=== PATIENT | female | born 1975 | race Caucasian/White ===

== ENCOUNTER 2017-01-30 17:36 | Inpatient (IN) | payer SELFPAY ==
[~2017-01-30] VITALS: Ht 157.5 cm; Wt 87.2 kg
--- NOTE | 2017-01-30 18:20 | ED NURSING NOTES ---
Clinical Report - Nurses [facility] [address] [place] [address] 01/30/2017 17:39 Patient: FRANCES MOURA TRIAGE Triage time 17:40. Acuity: LEVEL 3. Chief Complaint: INJURY TO RIGHT ANKLE. INJURY TO THE RIGHT ANKLE and LEFT ANKLE. Alert. --17:43 Palma Reza R.N. 17:40 01/30/17. BP: 163/89. HR: 90. RR: 18. O2 saturation: 100%. Pain level now 05/08. --17:43 Palma Reza R.N. Weight: 81.6 kg stated. Height/Length: 62 inches Per Patient. BMI: 32.9. --17:41 Palma Reza R.N. Medications None. --17:43 Palma Reza R.N. Allergies None. --17:43 Palma Reza R.N. History Arrived by private vehicle, and accompanied by family. This occurred just prior to arrival. ( Stepped off the curb wrong). She has had trouble walking. No numbness or tingling. 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 PAST MEDICAL HX: Tetanus status: up-to-date. SOCIAL HX: No alcohol use or drug use. --17:43 Palma Reza R.N. PROBLEMS: Paresthesia. Myofascial Strain. Juvenile Asthma. Headache. Hypertension. --17:43 Palma Reza R.N. ADDITIONAL SURGERIES: Csection. Hysterectomy. Tonsillectomy & Adenoidectomy. --17:43 Palma Reza R.N. PHYSICAL ASSESSMENT (kwabena). GENERAL / NEURO / PSYCH: Oriented X 4. Alert. Appears in pain and anxious. EXTREMITIES: Limited ROM present. Capillary refill is less than 2 seconds in the extremities. SKIN: Skin is pale. Skin is warm but moist. --17:44 Palma Reza R.N. NURSING PROGRESS NOTES Patient gowned. Patient identifiers checked. Call light placed in reach. Patient ready for evaluation- PA notified. --17:44 Palma Reza R.N. 17:45 01/30/2017 Site #1 started via IV in the left antecubital space with an 20g angiocath, with aseptic technique and good blood return; one attempt. Blood drawn: rainbow set. Labeled in the presence of the patient and sent to the lab. --17:45 Palma Reza R.N. 17:46 01/30/2017 Dilaudid (HYDROmorphone HCl PF) IVP 1 mg given over 2 minute(s) via site #1. Allergies verified, confirmed 5 rights and sedative warning given to the patient. IV patency established. IV site checked: no pain, redness, or swelling. IV flushed thoroughly pre- and post-medication administration. IVP given by RN. --17:46 Palma Reza R.N. 18:25 01/30/2017 Dilaudid (HYDROmorphone HCl PF) IVP 1 mg given over 2 minute(s) via site #1. --18:25 Palma Reza R.N. Assisted patient to bedside commode; tolerated well (PT voided 150 CCs. 2 person assist.). --18:54 Rufino Gonsalez, CHIDI [facility] 19:03 01/30/2017 Zofran (Ondansetron HCl) IVP 4 mg given over 2 minute(s) via site #1. Allergies verified and confirmed 5 rights. IV patency established. IV site checked: no pain, redness, or swelling. IV flushed thoroughly pre- and post-medication administration. IVP given by RN. --19:03 Palma Reza R.N. 19:19 01/30/2017 Dilaudid (HYDROmorphone HCl PF) IVP 1 mg given. via site #1. Allergies verified, confirmed 5 rights and sedative warning given to the patient and patient's family. IV patency established. IV site checked: no pain, redness, or swelling. IV flushed thoroughly pre- and post-medication administration. IVP given by RN. --19:19 Johnny Escoto R.N. 21:15 01/30/2017 Dilaudid (HYDROmorphone HCl PF) IVP 1 mg given over 2 minute(s) via site #1. Allergies verified, confirmed 5 rights and sedative warning given. IV patency established. IV site checked: no pain, redness, or swelling. IV flushed thoroughly pre- and post-medication administration. IVP given by RN. --23:30 Nick Rose R.N. 21:20 01/30/2017 Site #[address] upon admission; patent, no pain and no signs of infection or infiltration. Good blood return present. Flushed with 10 mL saline; flushes easily. --23:32 Nick Rose R.N. 19:00 01/30/17. BP: 147/76. HR: 88. RR: 16. O2 saturation: 100%. --23:40 Nick Rose R.N. 19:05. ( Splint applied to (L) Ankle by Anuel West). --23:42 Nick Rose R.N. Intake & Output Emesis output: 150; return noted with undigested food. --20:09 Johnny Escoto R.N. DISPOSITION / DISCHARGE Departure time: 2119. --21:22 Nick Rose R.N. 21:20. Admitted to Acute Care. Transported via stretcher by nurse with IV. Report was given to a nurse in person. Report included patient's care, treatment, medications, reviewed medication reconcilliation, and condition (including any recent changes or anticipated changes). All questions were answered. Report was acknowledged. Patient's personal items; items were placed in belongings bag. --21:23 Nick Rose R.N. 21:10 01/30/17. BP: 132/74. HR: 86. RR: 18. O2 saturation: 99% on room air. Temp: 98.6 F. Pain level now: 02/06. --23:39 Nick Rose R.N. Locked/Released at 01/30/2017 23:43 by Nick Rose R.N.
--- NOTE | 2017-01-30 18:20 | ED ORDER SUMMARY ---
..... Patient: FRANCES MOURA OrderSheet [facility] VisitID: [id number] [place] [address] 41y, F Registration Date/Time: 01/30/2017 ORDER SHEET Weight: 81.6 kg (stated) Allergies: None GENERAL ORDERS: Ankle 3 or 4V Right Urgent (17:43 01/30/2017 EKoroleva P.A.-C) (Ack 17:44 KHoerner) (17:46 DMaziarka R.N.) NPO (17:44 01/30/2017 EKoroleva P.A.-C) (Ack 17:44 KHoerner) (17:44 DMaziarka R.N.) CBC w Diff Urgent (18:00 01/30/2017 EKoroleva P.A.-C) (Ack 18:04 KHoerner) (18:17 DMaziarka R.N.) BMP Urgent (18:00 01/30/2017 EKoroleva P.A.-C) (Ack 18:04 KHoerner) (18:17 DMaziarka R.N.) Vitals (Pulse, BP, Resp Rate, Temp) (19:09 01/30/2017 EKoroleva P.A.-C) (Ack 19:09 KHoerner) (23:29 JRomanelli R.N.) MEDICATION ORDERS: IV FLUIDS: Dilaudid IV 1 mg (HIGH ALERT MEDICATION, NOW) (17:43 01/30/2017 EKoroleva P.A.-C) (17:46 DMaziarka R.N.) IV Saline Lock (17:43 01/30/2017 EKoroleva P.A.-C) (17:45 DMaziarka R.N.) Dilaudid IV 1 mg (HIGH ALERT MEDICATION, NOW) (18:06 01/30/2017 EKoroleva P.A.-C) (18:25 DMaziarka R.N.) Zofran IV 4 mg (NOW) (19:00 01/30/2017 EKoroleva P.A.-C) (19:03 DMaziarka R.N.) Dilaudid IV 1 mg (HIGH ALERT MEDICATION, NOW) (19:12 01/30/2017 Andrew Gardiner) (19:19 Roberto Carlos Reed) Dilaudid IV 1 mg (HIGH ALERT MEDICATION, NOW) (23:28 01/30/2017 Avis Reed verbal order read back to Andrew Gardiner) (23:30 Avis Reed) ORDER SHEET NOTES: [Electronically signed by Yomaira Jennings P.A.-C (19:21 01/30/2017)] [Electronically signed by Nick Rose R.N. (23:43 01/30/2017)] [Electronically locked/signed by Nick Rose R.N. (23:43 01/30/2017)]
--- NOTE | 2017-01-30 18:20 | ED CLINICAL REPORT ---
Clinical Report - Physicians/Mid Levels [facility] [address] [place] [place] [address] 01/30/2017 17:39 [id number] Time Seen: 17:48 Jan 30 2017. Arrived- By private vehicle. Historian- patient and family. HISTORY OF PRESENT ILLNESS Chief Complaint: Injury to the right ankle. The injury happened just prior to arrival. The patient sustained a twisting injury and direct blow. Occurred at home. Patient is experiencing severe pain. Patient denies injury to the head. (patient stepped from her porch to her left foot, which gave out, and she has a history of recurrent pains in issues with her left ankle, and then she slept on her right ankle and felt to distinct snap pop, and watch her ankle dangle. Has not been able to take any steps . No meds/ ice prior to arrival.). REVIEW OF SYSTEMS The patient complains of pain on weight bearing. She has had swelling. All systems otherwise negative, except as recorded above. PAST HISTORY The patient has not had a prior injury to the same area. Tetanus immunization status is up-to-date. Problems: Paresthesia. Myofascial Strain. Juvenile Asthma. Headache. Hypertension. Additional Surgeries: Csection. Hysterectomy. Tonsillectomy & Adenoidectomy. Medications: None. Allergies: None. SOCIAL HISTORY Never smoker. No alcohol use or drug use. ADDITIONAL NOTES The nursing notes have been reviewed. PHYSICAL EXAM Vital Signs: 01/30/2017 17:40 BP: 163/89. HR: 90. RR: 18. O2 saturation: 100%. Appearance: Alert. No acute distress. Head: Head atraumatic. ENT: Nose normal. CVS: Normal heart rate and rhythm. Heart sounds normal. Respiratory: No respiratory distress. Breath sounds normal. Skin: Skin intact. Skin warm. Extremities: Right posterior ankle: tenderness and swelling. Neurovascular intact distally. No puncture wound or foreign body. Not localized to the Achilles tendon. Negative squeeze test. Right lateral ankle: moderate tenderness and swelling. Right medial ankle: tenderness and swelling. No ecchymosis or foreign body. Base of the right 5th metatarsal. No tenderness or swelling. Left foot. (full rom, good pulse.) No tenderness, swelling, puncture wound or deformity. Right heel. No tenderness or swelling. No foot injury. Neuro, Vascular and Tendons: Vascular status intact. Motor intact. Gait: The patient was unable to bear weight. Neuro: Oriented X 3. LABS, X-RAYS, AND EKG Rt Ankle X-ray: (IMPRESSION: 1. Moderately displaced bimalleolar, potentially trimalleolar fracture (questionable nondisplaced posterior malleolus fracture). 2. Mild medial ankle mortise widening. Electronically Final signed by:Nicolette Resendiz MD 01/30/2017 6:27:50 PM). Laboratory Tests: CBC w Diff: (REENA: 01/30/2017 17:45) ( MsgRcvd 01/30/2017 18:11) Final results Test Result Flag Units (Reference) WHITE BLOOD COUNT 10.0 K/uL (4.5-11.5) RED BLOOD COUNT 5.13 M/uL (4.00-5.20) HEMOGLOBIN 14.8 gm/dL (12.0-16.0) HEMATOCRIT 44.5 % (36.0-46.0) MEAN CELL VOLUME 87 fL (80-100) MEAN CORPUSCULAR HGB 29 pg (26-34) MEAN CORPUSCULAR HGB CONC 33 g/dL (31-37) RED CELL DISTRIBUTION WIDTH 12.6 % (11.6-14.8) PLATELET COUNT 330 K/uL (150-400) NEUTROPHIL % 70.4 % (50-75) LYMPH % 20.3 L % (25-40) MONO % 7.6 % (3-14) EOSINOPHIL % 1.4 % (0-4) BASOPHIL % 0.3 % (0-2) BMP: (REENA: 01/30/2017 17:45) ( MsgRcvd 01/30/2017 18:13) Final results Test Result Flag Units (Reference) GLUCOSE 88 mg/dL (70-110) BUN 11 mg/dL (7-18) CREATININE 0.8 mg/dL (0.6-1.3) Estimated GFR >60 mL/min Estimated GFR- >60 mL/min Note: Persistent reduction over 3 months in eGFR<60 mL/min/1.73 m2 defines CKD. Patients with eGFR values>=60 mL/min/1.73 m2 may also have CKD if evidence ofpersistent proteinuria. Additional information may be foundat www.kidney.org. SODIUM 141 mmol/L (136-145) POTASSIUM 3.6 mmol/L (3.5-5.1) CHLORIDE 104 mmol/L (98-107) CARBON DIOXIDE 28 mmol/L (21-32) CALCIUM 9.0 mg/dL (8.5-10.1) . PROGRESS AND PROCEDURES PROCEDURES (Posterior R. Short leg, ns intact post tech application). Course of Care: Patient here with what likely appears as a trimalleolar fracture, with good distal pulse and sensation, with closed fracture in nature. No Achilles injury. Her left ankle appears unremarkable. No injury to the head neck. No injury to the hands. Discussed case with DR. Crespo, who will evaluate pt in er, admit to his services for surgery on 01/31/2017. Patient is stable. Symptoms better. Patient/family counseled. Disposition: Discharged. CLINICAL IMPRESSION Right trimalleolar fracture. INSTRUCTIONS Apply ice. (Electronically signed by Yomaira Jennings P.A.-C 01/30/2017 19:21)
--- NOTE | 2017-01-30 18:20 | ED NURSING NOTES ---
Clinical Report - Nurses Located Within [facility] [address] [place] [address] 01/30/2017 17:39 Patient: FRANCES MOURA TRIAGE Triage time 17:40. Acuity: LEVEL 3. Chief Complaint: INJURY TO RIGHT ANKLE. INJURY TO THE RIGHT ANKLE and LEFT ANKLE. Alert. --17:43 Palma Reza R.N. 17:40 01/30/17. BP: 163/89. HR: 90. RR: 18. O2 saturation: 100%. Pain level now 05/08. --17:43 Palma Reza R.N. Weight: 81.6 kg stated. Height/Length: 62 inches Per Patient. BMI: 32.9. --17:41 Palma Reza R.N. Medications None. --17:43 Palma Reza R.N. Allergies None. --17:43 Palma Reza R.N. History Arrived by private vehicle, and accompanied by family. This occurred just prior to arrival. ( Stepped off the curb wrong). She has had trouble walking. No numbness or tingling. 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 PAST MEDICAL HX: Tetanus status: up-to-date. SOCIAL HX: No alcohol use or drug use. --17:43 Palma Reza R.N. PROBLEMS: Paresthesia. Myofascial Strain. Juvenile Asthma. Headache. Hypertension. --17:43 Palma Reza R.N. ADDITIONAL SURGERIES: Csection. Hysterectomy. Tonsillectomy & Adenoidectomy. --17:43 Palma Reza R.N. PHYSICAL ASSESSMENT (kwabena). GENERAL / NEURO / PSYCH: Oriented X 4. Alert. Appears in pain and anxious. EXTREMITIES: Limited ROM present. Capillary refill is less than 2 seconds in the extremities. SKIN: Skin is pale. Skin is warm but moist. --17:44 Palma Reza R.N. NURSING PROGRESS NOTES Patient gowned. Patient identifiers checked. Call light placed in reach. Patient ready for evaluation- PA notified. --17:44 Palma Reza R.N. 17:45 01/30/2017 Site #1 started via IV in the left antecubital space with an 20g angiocath, with aseptic technique and good blood return; one attempt. Blood drawn: rainbow set. Labeled in the presence of the patient and sent to the lab. --17:45 Palma Reza R.N. 17:46 01/30/2017 Dilaudid (HYDROmorphone HCl PF) IVP 1 mg given over 2 minute(s) via site #1. Allergies verified, confirmed 5 rights and sedative warning given to the patient. IV patency established. IV site checked: no pain, redness, or swelling. IV flushed thoroughly pre- and post-medication administration. IVP given by RN. --17:46 Palma Reza R.N. 18:25 01/30/2017 Dilaudid (HYDROmorphone HCl PF) IVP 1 mg given over 2 minute(s) via site #1. --18:25 Palma Reza R.N. Assisted patient to bedside commode; tolerated well (PT voided 150 CCs. 2 person assist.). --18:54 Rufino Gonsalez, CHIDI [facility] 19:03 01/30/2017 Zofran (Ondansetron HCl) IVP 4 mg given over 2 minute(s) via site #1. Allergies verified and confirmed 5 rights. IV patency established. IV site checked: no pain, redness, or swelling. IV flushed thoroughly pre- and post-medication administration. IVP given by RN. --19:03 Palma Reza R.N. 19:19 01/30/2017 Dilaudid (HYDROmorphone HCl PF) IVP 1 mg given. via site #1. Allergies verified, confirmed 5 rights and sedative warning given to the patient and patient's family. IV patency established. IV site checked: no pain, redness, or swelling. IV flushed thoroughly pre- and post-medication administration. IVP given by RN. --19:19 Johnny Escoto R.N. 21:15 01/30/2017 Dilaudid (HYDROmorphone HCl PF) IVP 1 mg given over 2 minute(s) via site #1. Allergies verified, confirmed 5 rights and sedative warning given. IV patency established. IV site checked: no pain, redness, or swelling. IV flushed thoroughly pre- and post-medication administration. IVP given by RN. --23:30 Nick Rose R.N. 21:20 01/30/2017 Site #[address] upon admission; patent, no pain and no signs of infection or infiltration. Good blood return present. Flushed with 10 mL saline; flushes easily. --23:32 Nick Rose R.N. 19:00 01/30/17. BP: 147/76. HR: 88. RR: 16. O2 saturation: 100%. --23:40 Nick Rose R.N. 19:05. ( Splint applied to (L) Ankle by Anuel West). --23:42 Nick Rose R.N. Intake & Output Emesis output: 150; return noted with undigested food. --20:09 Johnny Escoto R.N. DISPOSITION / DISCHARGE Departure time: 2119. --21:22 Nick Rose R.N. 21:20. Admitted to Acute Care. Transported via stretcher by nurse with IV. Report was given to a nurse in person. Report included patient's care, treatment, medications, reviewed medication reconcilliation, and condition (including any recent changes or anticipated changes). All questions were answered. Report was acknowledged. Patient's personal items; items were placed in belongings bag. --21:23 Nick Rose R.N. 21:10 01/30/17. BP: 132/74. HR: 86. RR: 18. O2 saturation: 99% on room air. Temp: 98.6 F. Pain level now: 02/06. --23:39 Nick Rose R.N. Locked/Released at 01/30/2017 23:43 by Nick Rose R.N.
--- NOTE | 2017-01-30 18:20 | ED ORDER SUMMARY ---
..... Patient: FRANCES MOURA OrderSheet [facility] VisitID: [id number] [place] [address] 41y, F Registration Date/Time: 01/30/2017 ORDER SHEET Weight: 81.6 kg (stated) Allergies: None GENERAL ORDERS: Ankle 3 or 4V Right Urgent (17:43 01/30/2017 EKoroleva P.A.-C) (Ack 17:44 KHoerner) (17:46 DMaziarka R.N.) NPO (17:44 01/30/2017 EKoroleva P.A.-C) (Ack 17:44 KHoerner) (17:44 DMaziarka R.N.) CBC w Diff Urgent (18:00 01/30/2017 EKoroleva P.A.-C) (Ack 18:04 KHoerner) (18:17 DMaziarka R.N.) BMP Urgent (18:00 01/30/2017 EKoroleva P.A.-C) (Ack 18:04 KHoerner) (18:17 DMaziarka R.N.) Vitals (Pulse, BP, Resp Rate, Temp) (19:09 01/30/2017 EKoroleva P.A.-C) (Ack 19:09 KHoerner) (23:29 JRomanelli R.N.) MEDICATION ORDERS: IV FLUIDS: Dilaudid IV 1 mg (HIGH ALERT MEDICATION, NOW) (17:43 01/30/2017 EKoroleva P.A.-C) (17:46 DMaziarka R.N.) IV Saline Lock (17:43 01/30/2017 EKoroleva P.A.-C) (17:45 DMaziarka R.N.) Dilaudid IV 1 mg (HIGH ALERT MEDICATION, NOW) (18:06 01/30/2017 EKoroleva P.A.-C) (18:25 DMaziarka R.N.) Zofran IV 4 mg (NOW) (19:00 01/30/2017 EKoroleva P.A.-C) (19:03 DMaziarka R.N.) Dilaudid IV 1 mg (HIGH ALERT MEDICATION, NOW) (19:12 01/30/2017 Andrew Gardiner) (19:19 Roberto Carlos Reed) Dilaudid IV 1 mg (HIGH ALERT MEDICATION, NOW) (23:28 01/30/2017 Avis Reed verbal order read back to Andrew Gardiner) (23:30 Avis Reed) ORDER SHEET NOTES: [Electronically signed by Yomaira Jennings P.A.-C (19:21 01/30/2017)] [Electronically signed by Nick Rose R.N. (23:43 01/30/2017)] [Electronically locked/signed by Nick Rose R.N. (23:43 01/30/2017)]
--- NOTE | 2017-01-30 18:28 | DIAGNOSTIC IMAGING REPORT ---
PROCEDURE: XR ANKLE 3 OR 4 VIEWS - RIGHT INDICATION: TRAUMA/INJURY TECHNIQUE: Four views of the right ankle. COMPARISON: None. FINDINGS: Normal mineralization. Moderately displaced oblique coronal distal fibular diaphyseal fracture. Questionable nondisplaced, coronal oriented posterior malleolar fracture, mildly displaced medial malleolar fracture. Mild widening of the ankle mortise medially. The talar dome appears intact. Moderate size plantar calcaneal spur. Intact Achilles tendon. Diffuse periarticular soft tissue swelling and moderate tibiotalar joint effusion. IMPRESSION: 1. Moderately displaced bimalleolar, potentially trimalleolar fracture (questionable nondisplaced posterior malleolus fracture). 2. Mild medial ankle mortise widening.
--- NOTE | 2017-01-30 18:47 | Progress Note ---
Subjective General Patient admitted for fracture right ankle. Will need ORIF scheduled for surgery tomorrow. CT pending.
--- NOTE | 2017-01-30 18:47 | Progress Note ---
Subjective General Patient admitted for fracture right ankle. Will need ORIF scheduled for surgery tomorrow. CT pending.
--- NOTE | 2017-01-30 20:40 | DIAGNOSTIC IMAGING REPORT ---
PROCEDURE: CT LOWER EXT W/O CONT-RIGHT INDICATION: Fall, evaluate ankle fracture TECHNIQUE: Axial thin-slice CT images were obtained through the right ankle. Coronal and sagittal reformations were created. COMPARISON: Plain films performed the same day FINDINGS: There is a comminuted, moderately displaced, coronal eight oriented fracture of the posterior malleolus with extension and comminution at the articular surface. There is a transverse, moderately displaced fracture of the medial malleolus with mild comminution posteriorly. There is anterior subluxation of the distal tibia on the talus with abnormal anterior joint space widening. Subtle medial subluxation of the tibia on the talus is seen, minimally widening the ankle mortise, best seen on coronal series 200, image 40. Moderately displaced, minimally comminuted, oblique coronal oriented distal fibular fracture at the level of the syndesmosis. Tiny chip fracture off the dorsal anterior process of the talus. Tiny subcortical cystic change along the medial aspect of the talar dome, less likely to be post-traumatic. The hindfoot is otherwise intact with normal alignment. Mild diffuse subcutaneous edema. No radiodense foreign bodies. No obvious soft tissue abnormality. IMPRESSION: 1. Moderately displaced trimalleolar fracture. 2. Anteromedial subluxation of the distal tibia on the talus with abnormal anterior and medial joint space widening. 3. Chip fracture of the anterior process of the talus. 4. Medial talar dome subcortical cystic change, likely chronic.
[2017-01-30 21:49] VITALS: BP 140/103
[2017-01-30 23:42] VITALS: BP 133/72
--- NOTE | 2017-01-30 23:43 | ED MED RECONCILIATION SUMMARY ---
Patient: FRANCES MOURA Medication Reconciliation Report [facility] VisitID: [id number] [address] [place] [address] 41y, F Registration Date/Time: 01/30/2017 Weight: 81.6 kg Height/Length: 62 in. BMI: 32.9 ALLERGIES: None The patient's Home Medications are listed below: NONE. The source(s) of the original Home Medication information: Not obtained. The following Medications were given to the patient in the Emergency Department: Dilaudid [IVP] IVP 1 mg, administered: 01/30/2017 5:46:00 PM Dilaudid [IVP] IVP 1 mg, administered: 01/30/2017 6:25:00 PM Zofran [IVP] IVP 4 mg, administered: 01/30/2017 7:03:00 PM Dilaudid [IVP] IVP 1 mg, administered: 01/30/2017 7:19:00 PM Dilaudid [IVP] IVP 1 mg, administered: 01/30/2017 9:15:00 PM The following Medications were prescribed to the patient: None.
--- NOTE | 2017-01-30 23:43 | ED DISCHARGE INSTRUCTIONS ---
Patient: FRANCES MOURA General Instructions [facility] VisitID: [id number] [place] [address] 41y, F Registration Date/Time: 01/30/2017 Right trimalleolar fracture. INSTRUCTIONS Apply ice. ADDITIONAL INFORMATION Fracture:Ankle You have a break (fracture) of the ankle. This causes local pain, swelling and sometimes bruising. A fracture is treated with a splint or cast or special boot. It will take about 4-6 weeks for the fracture to heal. Surgery may be needed to fix severe injuries. Home Care: You will be given a splint, cast or boot to prevent movement at the ankle joint. Unless you were told otherwise, use crutches or a walker and do not bear weight on the injured leg until cleared by your doctor to do so. (Crutches and walkers can be rented at many pharmacies and surgical/orthopedic supply stores). Do not put weight on a splint; it will break. Keep your leg elevated to reduce pain and swelling. When sleeping, place a pillow under the injured leg. When sitting, support the injured leg so it is level with your waist. This is very important during the first 48 hours. Apply an ice pack (ice cubes in a plastic bag, wrapped in a towel) over the injured area for 20 minutes every 1-2 hours the first day. You can place the ice pack directly over the splint/cast. Continue with ice packs 3-4 times a day for the next two days, then as needed for the relief of pain and swelling. Keep the cast/splint/boot completely dry at all times. Bathe with your cast/splint/boot out of the water, protected with a large plastic bag, rubber-banded at the top end. If a boot or fiberglass cast/splint gets wet, you can dry it with a hair-dryer. You may use acetaminophen (Tylenol) or ibuprofen (Motrin, Advil) to control pain, unless another pain medicine was prescribed. [ NOTE : If you have chronic liver or kidney disease or ever had a stomach ulcer or GI bleeding, talk with your doctor before using these medicines.] Follow Up with your doctor in one week, or as advised by our staff, to be sure the bone is healing properly. If you were given a splint, it may be changed to a cast at your follow-up visit. [NOTE: A radiologist will review any X-rays that were taken. We will notify you of any new findings that may affect your care.] Get Prompt Medical Attention If Any Of The Following Occur: The plaster cast or splint becomes wet or soft The fiberglass cast or splint remains wet for more than 24 hours Increased tightness or pain under the cast or splint Toes become swollen, cold, blue, numb or tingly You have been given the following additional information: Fracture, Ankle (General) (Electronically signed by Yomaira Jennings P.A.-C 01/30/2017 19:21)
--- NOTE | 2017-01-30 23:43 | ED MAR SUMMARY ---
..... Medication Administration Record [facility] [address] [place] [address] Patient: FRANCES MOURA Visit ID: [id number] 41y, F Weight: 81.6 kg Height/Length: 62 in BMI: 32.9 ALLERGIES: None Given 17:46 01/30/2017 Palma Reza REugeniaNEugenia Medication Administered: DILAUDID [IVP] (HYDROMORPHONE HCL PF), Dose: 1 mg IVP over 2 minute(s), Site: #1 left AC. Medication Ordered: Dilaudid IV 1 mg (HIGH ALERT MEDICATION, NOW). Given 18:25 01/30/2017 Palma Reza R.N. Medication Administered: DILAUDID [IVP] (HYDROMORPHONE HCL PF), Dose: 1 mg IVP over 2 minute(s), Site: #1 left AC. Medication Ordered: Dilaudid IV 1 mg (HIGH ALERT MEDICATION, NOW). Given 19:03 01/30/2017 Palma Reza R.N. Medication Administered: ZOFRAN [IVP] (ONDANSETRON HCL), Dose: 4 mg IVP over 2 minute(s), Site: #1 left AC. Medication Ordered: Zofran IV 4 mg (NOW). Given 19:19 01/30/2017 Jhonny Escoto REugeniaNEugenia Medication Administered: DILAUDID [IVP] (HYDROMORPHONE HCL PF), Dose: 1 mg IVP, Site: #1 left AC. Medication Ordered: Dilaudid IV 1 mg (HIGH ALERT MEDICATION, NOW). Given 21:15 01/30/2017 Nick Rose REugeniaNEugenia Medication Administered: DILAUDID [IVP] (HYDROMORPHONE HCL PF), Dose: 1 mg IVP over 2 minute(s), Site: #1 left AC. Medication Ordered: Dilaudid IV 1 mg (HIGH ALERT MEDICATION, NOW).
--- NOTE | 2017-01-30 23:43 | ED MED RECONCILIATION SUMMARY ---
Patient: FRANCES MOURA Medication Reconciliation Report [facility] VisitID: [id number] [address] [place] [address] 41y, F Registration Date/Time: 01/30/2017 Weight: 81.6 kg Height/Length: 62 in. BMI: 32.9 ALLERGIES: None The patient's Home Medications are listed below: NONE. The source(s) of the original Home Medication information: Not obtained. The following Medications were given to the patient in the Emergency Department: Dilaudid [IVP] IVP 1 mg, administered: 01/30/2017 5:46:00 PM Dilaudid [IVP] IVP 1 mg, administered: 01/30/2017 6:25:00 PM Zofran [IVP] IVP 4 mg, administered: 01/30/2017 7:03:00 PM Dilaudid [IVP] IVP 1 mg, administered: 01/30/2017 7:19:00 PM Dilaudid [IVP] IVP 1 mg, administered: 01/30/2017 9:15:00 PM The following Medications were prescribed to the patient: None.
--- NOTE | 2017-01-30 23:43 | ED MAR SUMMARY ---
..... Medication Administration Record [facility] [address] [place] [address] Patient: FRANCES MOURA Visit ID: [id number] 41y, F Weight: 81.6 kg Height/Length: 62 in BMI: 32.9 ALLERGIES: None Given 17:46 01/30/2017 Palma Reza REugeniaNEugenia Medication Administered: DILAUDID [IVP] (HYDROMORPHONE HCL PF), Dose: 1 mg IVP over 2 minute(s), Site: #1 left AC. Medication Ordered: Dilaudid IV 1 mg (HIGH ALERT MEDICATION, NOW). Given 18:25 01/30/2017 Palma Reza R.N. Medication Administered: DILAUDID [IVP] (HYDROMORPHONE HCL PF), Dose: 1 mg IVP over 2 minute(s), Site: #1 left AC. Medication Ordered: Dilaudid IV 1 mg (HIGH ALERT MEDICATION, NOW). Given 19:03 01/30/2017 Palma Reza R.N. Medication Administered: ZOFRAN [IVP] (ONDANSETRON HCL), Dose: 4 mg IVP over 2 minute(s), Site: #1 left AC. Medication Ordered: Zofran IV 4 mg (NOW). Given 19:19 01/30/2017 Johnny Escoto REugeniaNEugenia Medication Administered: DILAUDID [IVP] (HYDROMORPHONE HCL PF), Dose: 1 mg IVP, Site: #1 left AC. Medication Ordered: Dilaudid IV 1 mg (HIGH ALERT MEDICATION, NOW). Given 21:15 01/30/2017 Nick Rose REugeniaNEugenia Medication Administered: DILAUDID [IVP] (HYDROMORPHONE HCL PF), Dose: 1 mg IVP over 2 minute(s), Site: #1 left AC. Medication Ordered: Dilaudid IV 1 mg (HIGH ALERT MEDICATION, NOW).
[2017-01-31] VITALS (10 sets, daily range): BP systolic 115–149; BP diastolic 76–93
--- NOTE | 2017-01-31 02:59 | HISTORY AND PHYSICAL ---
ADMITTED: 01/30/2017 CHIEF COMPLAINT: 1. Right ankle pain. HISTORY OF PRESENT ILLNESS: The patient was in her usual state of good health when she just tripped and twisted her right ankle, suffered a trimalleolar fracture of the same and is admitted for care and for surgical treatment of it. MEDICAL/SURGICAL HISTORY: The past history is positive in that she has had cervical cancer and had resection of her uterus when she was 29 years of age. She has had no evidence of recurrence since that time, but still she does have this past history of cancer. She also had a problem with palpitations and hypertension and was on a medication for a time associated with that, but says when she quit her job, which was very stressful, that is now improved and she is on no medications for her heart and has no more problems with hypertension. The patient denies hepatitis, AIDS, other types of cancer, tumor, tuberculosis, heart, lung, kidney, stomach disease. She has not had a previous myocardial infarction or cerebrovascular accident. MEDICATIONS: 1. She is no medications other than occasional ibuprofen for pain. ALLERGIES: 1. SHE HAS NO KNOWN ALLERGIES. SOCIAL HISTORY: The patient is a former smoker, but quit a number of years ago. FAMILY HISTORY: Positive for diabetes and heart disease, but no problems with bleeding or anesthesia complications. She does say her mother of liver cancer and had ITP before she , but it sounds like that was related to her liver cancer. REVIEW OF SYSTEMS: Negative for seizure disorder. She says she does have some problems with migraine and said at one time she did pass out with a migraine headache, but she has not had any visual, sensory or balance changes. She had no chest pains or shortness of breath. No cough or congestion, fever, chills. No recent palpitations and she has had no nausea, vomiting, or diarrhea. No dysuria, no other musculoskeletal complaints other than just some mild pain in her left foot. PHYSICAL EXAMINATION: HEENT: Shows her head to be normocephalic and atraumatic. Her eyes are clear. Hearing is grossly normal. There is no drainage from the ear canals. Mouth and posterior oropharynx are clear. The teeth are in good repair. The tongue is midline. Her face is symmetrical. NECK: Without jugular venous distention. CHEST: Symmetrical. HEART: Regular rate and rhythm. LUNGS: Clear to auscultation. ABDOMEN: Mildly obese, but there is no distention. BACK: The spine is without visible deformity. EXTREMITIES: The right lower extremity shows the patient to have 2 to 3+ edema at the right ankle, but there are no open skin wounds. There is no ecchymosis. Her dorsal pedal pulse is 2+. She has light touch sensation present in the toes throughout. LAB/IMAGING: Her x-rays show her to have a trimalleolar fracture with the posterior fragment being relatively large. It looks like on the lateral view, involves almost half the joint surface, although I think is somewhat an oblique fracture and probably is somewhat less than that, but nevertheless there is a significant posterior malleolar fragment as well. The patient does have some widening of the mortise as well. IMPRESSION: 1. Trimalleolar fracture, right ankle with displacement and intra-articular involvement. PLAN: The plan will be for repair of the same. I did explain to her this is a severe fracture as there are a number of pieces present. Her ankle joint is involved and the risk of her developing stiffness afterwards is nearly 100% and there is some risk of breakdown of the skin, of failure of repair, problems with healing, of infection , of continued pain, and deep venous thrombosis and blood clots in legs as well. She understands and accepts. We will certainly do the best we can, but this may be more than a one-step process in which do pinning or a stabilization procedure to start with and she may need to wait until the swelling subsides until we do further definitive stabilization, although I would hopefully be able to at least fix the medial malleolar fragment and get the mortise reduced, but we will do the best we can. I told that what is done tomorrow will be at least partially depended on the degree of swelling she has and we will plan to admit her and elevate and ice the ankle for tonight.
--- NOTE | 2017-01-31 07:47 | Progress Note ---
Subjective General Patient has a very comminuted tibial plafond fracture seen on CT. We will plan for surgical ORIF today, although she may just get an external fixator to reduce the tibiotalar joint and stabilize depending on the degree of edema she has when she comes to surgery and her compartment pressures. Labs were reviewed and are OK.
--- NOTE | 2017-01-31 20:20 | Postoperative Progress Note ---
Postop Progress Note Preoperate Diagnosis: Fracture right ankle Postoperative Diagnosis: Same + compartment syndrome right leg Surgeon: Michael Crespo MD Anesthesia: General ETT Findings: Elevated compartment pressures lateral, ant and deep post compartments right leg at the ankle. Comminuted and displaced frature right tibial plafond, medial malleolus, and distal fibula with subluxation of the tibiotalar joint. Patient had intact light touch sensation throughout the toes, Active DF/PF of toes and no undue pain with passive toe extension on PE just prior to surgery this pm, but elevated pressures on testing. Procedure: Open repair of medial malleolus. Application of external fixator RLE. Complications? No Condition: Stable EBL: <25cc Blood Administered: 0 Specimen(s) removed? No Grafts or Implants? Yes Graft/Implant type: Screw and pin, external fixator RLE. . (See nursing notes for details of grafts/implants)
--- NOTE | 2017-01-31 21:32 | OPERATIVE REPORT ---
DATE OF SURGERY: 01/31/2017 SURGEON: KANE TORRES MD PREOPERATIVE DIAGNOSES: 1. Fracture subluxation of the right ankle 2. Operation proposed was repair of right ankle fracture POSTOPERATIVE DIAGNOSIS: 1. Fracture subluxation of the right ankle with compartment syndrome PROCEDURE PERFORMED: 1. Open repair of the medial malleolar fracture 2. Debridement of the joint 3. Placement of external fixator CONDITION: She is in stable condition. ESTIMATED BLOOD LOSS: Less than 25 mL, probably closer to 10 mL. COMPLICATIONS: None. PATHOLOGY SPECIMEN: Sent to lab were none. SURGICAL TECHNIQUE: The patient was taken to the operating room, where she was given a general anesthetic, tourniquet applied to right thigh. The patient had a delay in the surgery when some of the instruments got dropped on the floor and needed to be resterilized. Once we got the appropriate instruments ready then the leg was prepped and draped in the usual sterile fashion. We started by measuring the compartment pressures. I was getting 57 in the anterior compartment, the same in the deep posterior compartment; 55, 56, 57, and 47 in the lateral compartment. I manipulated the ankle under fluoroscopic visualization. We were able to reduce the tibiotalar joint in a reasonable fashion and aligned the fibula. Unfortunately, I was not able to align the medial malleolus and get it lined with closed technique and we went on then to open the medial side of short curving incision directly over the medial malleolus, carrying down through subcutaneous tissue and then aligning the fracture there. First I opened it up, cleaned it out with a small curette, looked inside the joint, irrigated out the joint, removed a few small particles of bone and cartilage. I could see that she had a piece of cartilage that was marked off of the medial corner of the talar dome, just at its most medial aspect and again, there were a few other small fragments that were loose in the joint, which were removed. The patient had reduction in the medial malleolus. We pinned it with a 2 mm pin first and then made another drill hole just anterior to the pin site and through that placed a 50 mm length x 4 mm diameter malleolar screw and with that, we were able to secure the fracture down in excellent anatomic position and bent over the pin and then tapped it down flush with the end of the bone. With that we had good secure fixation of the medial malleolus and helped to stabilize the ankle and prevent posterior subluxation and lateral subluxation of the talus. I checked the compartment pressures again and got almost identical readings again this time and so rather than open her and risk having to leave her open with hardware in place on the lateral side. I placed an external fixator, 2 pins, directly anteriorly in the tibial shaft and I cross pinned through the calcaneus posteriorly and then a single 4 mm pin, the other pins were 5 mm pins, a single 4 mm pin in the proximal first metatarsal and made a triangular frame with this and was able to reduce the ankle and what looked like almost perfect alignment and once we clamped down the external fixator, had the joint actually reduced and the foot in a plantigrade position and the ankle aligned as it should be or at least as close to perfect alignment as is possible to obtain with the fluoroscopy, then we clamped everything down, dressed the pin sites with Xeroform, we went back and checked the compartment pressures and once she had the ankle reduced and everything in alignment, the pressures I was getting in the anterior and deep posterior compartments were 25-27 and in the lateral compartment 22, so rather marked improvement there and so we addressed the medial wound site, again dressed the pin sites with Xeroform, with gauze, wrapped it with Kerlix, very loosely applied, and then the Cyrus bandages very loosely applied over the top of that. She is being awakened. She will be taken to the recovery room. I did have a chance before the surgery to explain to patient and her that we might have to just put an external fixator, may not be able to go on really fix the fractures, particularly of the tibial plafond definitively tonight and they understood this. 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 We will be getting another CT of it to just check the articular surface of the tibial plafond and we will see where we go from there.
[2017-02-01] VITALS (7 sets, daily range): BP systolic 127–158; BP diastolic 83–108
--- NOTE | 2017-02-01 08:22 | Progress Note ---
Subjective General NMV intact. No drainage in the bandages. Mild distal edema. Pain better today. She is still c/o left ankle pain also. I looked at the left ankle with the fluoroscopy yesterday and saw no fracture, but will get a formal Xray to check. CT today of the right ankle to check for residual displacement at the articular surface of the tibail plafond. It looks perfect on Xray, but I want a CT to confirm.
--- NOTE | 2017-02-01 09:57 | DIAGNOSTIC IMAGING REPORT ---
PROCEDURE: XR ANKLE 3 OR 4 VIEWS - LEFT INDICATION: R/O fracture TECHNIQUE: Four views. COMPARISON: None. FINDINGS: Osseous structures and joint spaces are normal. IMPRESSION: 1. Normal left ankle.
--- NOTE | 2017-02-01 11:42 | DIAGNOSTIC IMAGING REPORT ---
PROCEDURE: CT LOWER EXT W/O CONT-RIGHT INDICATION: Status post ORIF with external fixation device. TECHNIQUE: Axial thin-slice CT images were obtained through the right ankle. Coronal and sagittal reformations were created. COMPARISON: 01/30/2017 FINDINGS: There has been reduction of the anterior subluxation of the distal tibia on the talus with near anatomic alignment of the posterior malleolar fracture fragments. There is a K-wire and a lag screw through the medial malleolus. There is a tiny cortical fracture fragment within the anteromedial aspect of the mortise arising from the medial calf malleolus, within the articular space. There has been decrease displacement of the coronal oblique distal fibular fracture, but persistent mild anterior displacement of the anterior fracture fragment. The ankle mortise alignment now appears near anatomic. The external fixation device courses through the first metatarsal, calcaneus, and proximal and mid tibia. No unexpected fractures or malalignment. IMPRESSION: 1. Near anatomic alignment of distal tibia and fibular fractures status post ORIF and external fixation. 2. Persistent mild displacement of distal fibular fracture. 3. Tiny anteromedial fragment from the medial malleolus encroaching on the anteromedial tibia talar joint. Clinical significance is uncertain.
--- NOTE | 2017-02-01 12:53 | DIAGNOSTIC IMAGING REPORT ---
PROCEDURE: XR FLUOROSCOPY OVER 1 HOUR INDICATION: Right ankle surgery. Intraoperative right ankle. TECHNIQUE: C-arm fluoroscopy provided Dr. Pascual Crespo for intraoperative surgical procedure. Fluoroscopy time 4 minutes 37 seconds (18.7 mGy). COMPARISON: Comparison is made to CT and radiographs of the right ankle on 01/30/2017. FINDINGS: AP and lateral intraoperative C-arm views were obtained. There has been open reduction internal fixation of medial malleolar fracture transfixed with a screw and metal and (anatomic position). Lateral malleolar and posterior malleolar fractures have been reduced to near anatomic position. There has been reduction of an impacted fracture of the tibial plafond with external metal hardware overlying the medial ankle, and a screw extending into the calcaneus (suggests internal/external fixating device). IMPRESSION: 1. Open reduction and internal fixation of medial malleolar fracture (anatomic position). 2. Reduction of lateral and posterior malleolar fractures disease (near anatomic position). 3. Reduction of tibial plafond fracture (near anatomic position) with placement of internal/external fixating device.
[2017-02-01] MEDS ORDERED: PERCOCET1 TA1 PO (17:28)
[2017-02-02 02:32] VITALS: BP 156/98
[2017-02-02 03:04] VITALS: BP 144/88
[2017-02-02 07:08] VITALS: BP 164/101
--- NOTE | 2017-02-02 07:47 | Progress Note ---
Subjective General Afeb BP elevated NMV intact. Only a small amount of drainage today. 2+ distal edema. Rebandaged DC home today with F/U in 1 week NWB.
[2017-02-02] MEDS ORDERED: DILAUDID4 MG PO (07:49)
--- NOTE | 2017-02-02 07:49 | Provider's Discharge Care Plan ---
Problem, Goal, Plan Problem List 1. Ankle fracture
--- NOTE | 2017-02-02 07:49 | Provider's Discharge Care Plan ---
Problem, Goal, Plan Problem List 1. Ankle fracture
--- NOTE | 2017-02-02 08:15 | DISCHARGE SUMMARY ---
ADMIT DATE: 01/30/2017 DISCHARGE DATE: 02/02/2017 DISCHARGE DIAGNOSES: 1. Left ankle sprain 2. Right ankle tibial plafond and distal fibular fracture BRIEF HISTORY: The patient was in her usual state of good health when she suffered a fall and fractured her right ankle and posterior left ankle. She was brought to the emergency room and x-rays confirmed the fractures. Orthopedic consultation was requested. HOSPITAL COURSE: The patient was admitted to the hospitalist. She was taken to surgery the next day where she had limited open repair and then external fixation of the right ankle fracture. She did have a compartment syndrome, with elevated compartment pressures when we started, and by the time she was stabilized and reduced, compartment pressures had subsided and she subsequently then had no problems with sensation or motor function distally during the course of her further stay in the hospital. She was able to dorsiflex and plantarflex the toes without difficulty, had light touch sensation present, intact distally, and the toes were warm and pink and circulation remained intact. At the time of her discharge, the patient was well stabilized and the tibial plafond fracture almost perfectly reduced with external fixation. The medial malleolus was stabilized with a pin and screw, and the distal fibular fracture was in adequate position, with some mild subluxation of the distal tib-fib joint and mild displacement of the fibular fracture, but still this was as good as was felt could be done with the external fixation at this time, and she probably will need later further internal fixation once the swelling subsides. She was stable. Vital signs, there was some elevation of her blood pressure, which was felt to be primarily secondary to pain. Her temperature was normal, and she was afebrile by the time of her discharge on 03/2017. Again, her sensation and motor functions and circulation remained intact distally. The drainage has already subsided. I did change her bandages, and she will be discharged to home then on 02/02/2017 in good condition. DISCHARGE INSTRUCTIONS/MEDICATIONS: The plan will be for her to refrain from any weightbearing at all, to keep the incisions clean and dry and covered, and the external likewise. She will take Dilaudid 4 mg every 3 hours as needed for pain and will return for followup in our office in 1 week. Condition on discharge is stable. The prognosis is fair, because of the extensive comminution and the nature of the fracture, and the discharged status is home.
[2017-02-02 10:53] VITALS: BP 164/97
[2017-03-21] MEDS ORDERED: VICODIN EQUIVAL1 TAB PO (16:12)
[2017-03-21] MEDS ORDERED: DOXYCYCLINE100 MG PO (16:13)
== END 2017-02-02 14:30 | disposition home or self-care (01) | DRG 493 ==
LOC: ED SRH 17:36 → TRANS SRH 18:26 → ACUTE2 SRH 20:20
PROVIDERS: Orthopaedic Surgery; ADMIT Emergency Medicine
PROC: 0QSG04Z Reposition Right Tibia with Internal Fixation Device, Open Approach (ICD-10-PCS; principal; 2017-01-31 14:00)
PROC: 0SBF0ZZ Excision of Right Ankle Joint, Open Approach (ICD-10-PCS; principal; 2017-01-31 14:00)
PROC: 0SSFXZZ Reposition Right Ankle Joint, External Approach (ICD-10-PCS; principal; 2017-01-31 14:00)
PROC: 0QHG35Z Insertion of External Fixation Device into Right Tibia, Percutaneous Approach (ICD-10-PCS; principal; 2017-01-31 14:00)
DX: S82.851A Displaced trimalleolar fracture of right lower leg, initial encounter for closed fracture (principal); T79.A21A Traumatic compartment syndrome of right lower extremity, initial encounter; S93.04XA Dislocation of right ankle joint, initial encounter; S93.402A Sprain of unspecified ligament of left ankle, initial encounter; W10.8XXA Fall (on) (from) other stairs and steps, initial encounter; Y92.018 Other place in single-family (private) house as the place of occurrence of the external cause; Y93.01 Activity, walking, marching and hiking; Y99.8 Other external cause status

== ENCOUNTER 2017-03-17 18:58 | Emergency (ER) | payer BC ==
[~2017-03-17 18:58] MED LIST: DILAUDID4 MG PO; PERCOCET1 TA1 PO
--- NOTE | 2017-03-17 20:50 | DIAGNOSTIC IMAGING REPORT ---
PROCEDURE: XR FOOT 3 VIEWS - RIGHT INDICATION: PAIN IN FOOT TECHNIQUE: Three views. COMPARISON: Right ankle x-ray 01/30/2017. FINDINGS: Pin and screw fixating the medial malleolar fracture. External fixation device through the calcaneus and first metatarsal. No evidence of hardware failure or evidence of infection. IMPRESSION: 1. Right foot postsurgical changes. No evidence of osteomyelitis.
--- NOTE | 2017-03-17 22:16 | ED CLINICAL REPORT ---
Clinical Report - Physicians/Mid Levels [facility] [address] [place] [address] 03/17/2017 18:58 Patient: FRANCES MOURA Time Seen: 19:28. Arrived- By private vehicle. Historian- patient and spouse. HISTORY OF PRESENT ILLNESS Chief Complaint: ( Severe right foot pain for several hours.). At its maximum, severity described as severe. Modifying factors- worsened by movement. Not relieved by anything. This started today and is still present and worsening. It was abrupt in onset. (Patient had a comminuted right ankle/lower leg fracture and was treated with external fixating rods on 01/31/2017. She seemed to be recovering as expected until about 2 weeks ago when she apparently developed a staph infection. She was treated with Augmentin and finished her course 5 days ago. Tonight she awoke up from sleep with severe throbbing pain in her right foot. No recent trauma. No fever or chills. She feels that the redness around one of the rods is new. She was seen earlier this week by her surgeon who felt that her pain was from nerve pain.). Similar symptoms previously: None. Recent medical care: The patient was seen recently at another facility in a clinic. REVIEW OF SYSTEMS No fever, cough, difficulty breathing, abdominal pain or nausea. No vomiting, chills or skin rash. PAST HISTORY See nurses notes. SOCIAL HISTORY Smoker- current status unknown. No alcohol use or drug use. ADDITIONAL NOTES The nursing notes have been reviewed. PHYSICAL EXAM Appearance: Alert. Appears to be in pain. Eyes: Eyes normal inspection. Neck: Normal inspection. CVS: Normal heart rate and rhythm. Heart sounds normal. Respiratory: No respiratory distress. Breath sounds normal. Back: Normal inspection. Skin: Skin warm and dry. No rash. Extremities: Right leg. No erythema, tenderness or swelling. Right foot: mild erythema and severe tenderness located in the heel. Neurovascular intact distally. (Pain out of proportion to even light touch throughout the calcaneus. Mild erythema around the lateral fixator john that this looks to be from chronic skin irritation. Otherwise no erythema, edema or warmth.). No swelling or deformity. Neuro: Oriented X 3. No motor deficit. No sensory deficit. LABS, X-RAYS, AND EKG Lt Foot X-ray: Soft tissues normal. Joint spaces normal. (No acute fracture. No hardware loosening.). The X-rays were discussed with the radiologist. Laboratory Tests: ESR: (REENA: 03/17/2017 19:30) ( [facility] 03/17/[place] 21:29) Final results Test Result Flag Units (Reference) SED RATE WESTERGREN 12 mm/hr (0-20) CBC w Diff: (REENA: 03/17/2017 19:30) ( [facility] [place] 03/17/[place] 19:44) Final results Test Result Flag Units (Reference) WHITE BLOOD COUNT 13.5 H K/uL (4.5-11.5) RED BLOOD COUNT 5.10 M/uL (4.00-5.20) HEMOGLOBIN 14.6 gm/dL (12.0-16.0) HEMATOCRIT 43.1 % (36.0-46.0) MEAN CELL VOLUME 85 fL (80-100) MEAN CORPUSCULAR HGB 29 pg (26-34) MEAN CORPUSCULAR HGB CONC 34 g/dL (31-37) RED CELL DISTRIBUTION WIDTH 12.9 % (11.6-14.8) PLATELET COUNT 347 K/uL (150-400) NEUTROPHIL % 65.4 % (50-75) LYMPH % 23.5 L % (25-40) MONO % 9.9 % (3-14) EOSINOPHIL % 0.9 % (0-4) BASOPHIL % 0.3 % (0-2) [id number]: (REENA: 03/17/2017 19:30) ( [facility] [place] 03/17/2017 21:17) Final results Test Result Flag Units (Reference) C-REACTIVE PROTEIN 2.8 H mg/dL (0.0-0.9) Lactate, Serum: (REENA: 03/17/2017 19:40) ( [facility] [place] 03/17/2017 20:15) Final results Test Result Flag Units (Reference) LACTIC ACID 1.2 mmol/L (0.4-2.0) CMP: (REENA: 03/17/2017 19:30) ( [facility] 03/17/2017 19:51) Final results Test Result Flag Units (Reference) GLUCOSE 106 mg/dL (70-110) BUN 13 mg/dL (7-18) CREATININE 0.8 mg/dL (0.6-1.3) Estimated GFR >60 mL/min Estimated GFR- >60 mL/min Note: Persistent reduction over 3 months in eGFR<60 mL/min/1.73 m2 defines CKD. Patients with eGFR values>=60 mL/min/1.73 m2 may also have CKD if evidence ofpersistent proteinuria. Additional information may be foundat www.kidney.org. SODIUM 140 mmol/L (136-145) POTASSIUM 4.0 mmol/L (3.5-5.1) CHLORIDE 103 mmol/L (98-107) CARBON DIOXIDE 25 mmol/L (21-32) CALCIUM 9.4 mg/dL (8.5-10.1) TOTAL PROTEIN 8.1 g/dL (6.4-8.2) ALBUMIN 4.0 g/dL (3.3-5.0) BILIRUBIN, TOTAL 0.3 mg/dL (0.0-1.0) ALKALINE PHOSPHATASE 65 U/L (46-116) AST (SGOT) 11 L U/L (15-37) ALT (SGPT) 29 U/L (12-78) . PROGRESS AND PROCEDURES Course of Care: 20:56 03/17/17. Discussed with radiology as well as supervising physician. No evidence of hardware loosening on x-ray. Lactate normal white count slightly elevated. We'll add an ESR and CRP and talk to on-call orthopedics. 21:33 03/17/17. CRP slightly elevated. Will discuss with on-call orthopedic surgeon. 21:50 03/17/17. Spoke to on-call surgeon. Discharge decision based on the following: patient's condition is stable; patient's condition is improved; patient's exam is stable; minimally abnormal test results; stable condition on multiple repeat evaluations; improving condition on multiple repeat evaluations; social support is good; transportation is available; follow-up is arranged; clinical impression is consistent with outpatient treatment. CLINICAL IMPRESSION Acute pain in the right lower extremity (foot). INSTRUCTIONS Rest at home for three days. Do not work for three days until better. No dietary restrictions. Warnings: SEDATIVE MEDICATION: You were given sedative medication during your visit. Do not drive or operate dangerous machinery. GENERAL WARNINGS: Return or contact your physician immediately if your condition worsens or changes unexpectedly, if not improving as expected, or if other problems arise. Specifically return if pain, vomiting or fever. Prescription Medications: Augmentin 875 mg: take 1 tablet orally every 12 hours for 10 days. No refill. Substitution is permissible. Pacific 5 mg / 325 mg tablets: take 1 to 2 orally every 6 hours as needed for pain. Dispense fifteen (15). No refill. Substitution is permissible. Elavil 25 mg: at bedtime. Dispense twenty (20). No refill. Substitution is permissible. (T 1 tab PO HS for 1 week, then increase to 2 tabs PO HS.) Follow-up: Follow up with your doctor as scheduled. Understanding of the discharge instructions verbalized by patient. Follow-up with: [facility], , [address] [place], [id number]; Luis Eduardo Madera M.D., [facility], , [address], , [place], [id number] Follow up even if well. Call for the next available appointment. (Electronically signed by Teddy Marin, 03/17/2017 23:04)
--- NOTE | 2017-03-17 22:16 | ED NURSING NOTES ---
Clinical Report - [facility] [address] [place] [address] 03/17/2017 18:58 Patient: FRANCES MOURA TRIAGE Triage time 19:08. --19:13 Ashley Lowe R.N. 19:08 03/17/17. BP: 150/90. HR: 100. RR: 22. O2 saturation: 97%. Temp: 98.5 F. Pain level now: 08/08. --19:13 Ashley Lowe R.N. Weight: 83.9 kg stated. Height/Length: 62 inches Per Patient. BMI: 33.9. --19:11 Ashley Lowe R.N. History Arrived by private vehicle. Historian: patient and family. ( RLE postsurgical pain with external fixation device. Pt. had ORIF on 01/31/2017, was Dx with "staph" infection in leg 2 weeks ago. Was on 10-day course of Augmentin, finished 4 days ago. Pt. awoke at 0230 with severe pain, has increased since that time.). She has had numbness. ( Pt reports numbness since surgery). SOCIAL HX: Smoker- current status unknown. No alcohol use or drug use. No infectious disease exposure. --19:13 Ashley Lowe R.N. PROBLEMS: Ankle Fracture. Hypertension. --19:10 Ashley Lowe R.N. ADDITIONAL SURGERIES: ORIF RLE . --19:10 Ashley Lowe R.N. NURSING PROGRESS NOTES 19:28 03/17/2017 Dilaudid (HYDROmorphone HCl PF) IVP 1 mg given over 2 minute(s) via site #1. --19:33 Ashley Lowe R.N. 19:03/17/2017 Zofran (Ondansetron HCl) IVP 4 mg given over 2 minute(s) via site #1. --19:33 Ashley Lowe R.N. 19:32 03/17/2017 Site #1 started via IV in the right antecubital space with an 20g angiocath. --19:33 Ashley Lowe R.N. Cold pack applied. Reassurance given. Call light placed in reach. Side rails up x 2. Bed placed in lowest position. --20:00 Ashley Lowe R.N. 20:00 03/17/17. BP: 135/89. HR: 91. RR: 16. O2 saturation: 98%. Pain level now: 03/08. --20:01 Ashley Lowe R.N. ( pt reports pain better after meds.). --20:01 Ashley Lowe R.N. 20:25 03/17/2017 Dilaudid (HYDROmorphone HCl PF) IVP 1 mg given over 2 minute(s) via site #1. Allergies verified, confirmed 5 rights and sedative warning given to the patient and patient's family. IV patency established. IV site checked: no pain, redness, or swelling. IV flushed thoroughly pre- and post-medication administration. IVP given by RN. --20:25 Ashley Lowe R.N. ( wound cultured and sent to lab.). --20:29 Ashley Lowe R.N. 21:13 03/17/2017 Dilaudid (HYDROmorphone HCl PF) IVP 1 mg given over 2 minute(s) via site #1. Allergies verified, confirmed 5 rights and sedative warning given to the patient and patient's family. IV patency established. IV site checked: no pain, redness, or swelling. IV flushed thoroughly pre- and post-medication administration. --21:13 Ashley Lowe R.N. 22:00 03/17/2017 Started 2 gm of Rocephin (CefTRIAXone Sodium) IVPB in bag #1 50 mL; at 100 mL/hr over 30 minute(s) via site #1 via IV pump. Allergies verified and confirmed 5 rights. IV patency established. IV site checked: no pain, redness, or swelling. IV flushed thoroughly pre- and post-medication administration. --22:00 Ashley Lowe R.N. ( pt resting quietly. States pain is "starting to creep back up." Abx hung. No further needs. Requesting ice chips. Will let provider know.). --22:05 Ashley Lowe R.N. 22:04 03/17/17. BP: 126/83. HR: 96. RR: 18. O2 saturation: 99%. Pain level now: 03/08. --22:05 Ashley Lowe R.N. ( Pt. given ice chips. Ok'd by provider.). --22:06 Ashley Lowe R.N. ( Report to RN. Leonie for end of shift coverage.). --22:11 Ashley Lowe R.N. 22:31 03/17/2017 Rocephin IVPB Discontinued: bag #1 completed. Total amount infused: 50 mL. IV patency established. IV site checked: no pain, redness, or swelling. IV flushed thoroughly. --22:31 Miguelina Serrano. DISPOSITION / DISCHARGE Departure time: 2230. Condition at departure: improved and stable. No learning barriers present. Discharge instructions provided and reviewed with the patient and spouse. Patient verbalized understanding. Written instructions provided in Cymraes. The patient was discharged by the physician. She was discharged home and accompanied by spouse. She left the Emergency Department in a wheelchair and via private vehicle. Spouse driving. ( Late entry). --19:15 Leonie Gutierrez. Locked/Released at 03/27/2017 19:15 by Leonie Gutierrez,
--- NOTE | 2017-03-17 22:16 | ED ORDER SUMMARY ---
..... Patient: FRANCES MOURA OrderSheet [facility] VisitID: [id number] [place] [address] 41y, F Registration Date/Time: 03/17/2017 ORDER SHEET Weight: 83.9 kg (stated) Allergies: GENERAL ORDERS: CBC w Diff Urgent (19:03/17/2017 JCoates) (Ack 19:26 OSnell) (22:31 HSoule) CMP Urgent (19:03/17/2017 JCoates) (Ack 19:26 OSnell) (22:31 HSoule) Lactate, Serum Urgent (:03/17/2017 JCoates) (Ack 19:26 OSnell) (22:31 HSoule) Foot 3V Left Urgent (19:03/17/2017 JCoates) (Ack 19:28 OSnell) (20:37 [place]) Culture, Wound Surface (Ankle) (Right ankle john insertion ) Urgent (20:25 03/17/2017 SStone R.N. verbal order read back to JCoates) (Ack 20:32 OSnell) (22:31 HSoule) CRP Urgent (20:56 03/17/2017 JCoates) (Ack 21:21 OSnell) (22:31 HSoule) ESR Urgent (20:56 03/17/2017 JCoates) (Ack 21:22 OSnell) (22:31 HSoule) Consult - Ortho (On-call for [facility] (Dr. Pollack previous surgeon). Thanks.) (21:32 03/17/2017 JCoates) (Ack 21:37 OSnell) (22:31 HSoule) MEDICATION ORDERS: IV FLUIDS: Dilaudid IV 2 mg (NOW) (19:03/17/2017 JCoates) (19:33 SStone R.N.) Zofran IV 8 mg (NOW) (:03/17/2017 JCoates) (19:33 SStone R.N.) IV Saline Lock (:03/17/2017 JCoates) (19:32 SStone R.N.) Dilaudid IV 1 mg (NOW) (21:09 03/17/2017 JCoates) (21:13 SStone R.N.) Rocephin IV 2 gm/50mL (NOW) (21:50 03/17/2017 JCoates) (22:00 SStone R.N.) ORDER SHEET NOTES: [Electronically signed by Teddy Marin (23:04 03/17/2017)] [Electronically signed by Leonie Gutierrez (19:15 03/27/2017)] [Electronically locked/signed by Leonie Gutierrez (19:15 03/27/2017)]
--- NOTE | 2017-03-17 22:16 | ED CLINICAL REPORT ---
Clinical Report - Physicians/Mid Levels [facility] [address] [place] [address] 03/17/2017 18:58 Patient: FRANCES MOURA Time Seen: 19:28. Arrived- By private vehicle. Historian- patient and spouse. HISTORY OF PRESENT ILLNESS Chief Complaint: ( Severe right foot pain for several hours.). At its maximum, severity described as severe. Modifying factors- worsened by movement. Not relieved by anything. This started today and is still present and worsening. It was abrupt in onset. (Patient had a comminuted right ankle/lower leg fracture and was treated with external fixating rods on 01/31/2017. She seemed to be recovering as expected until about 2 weeks ago when she apparently developed a staph infection. She was treated with Augmentin and finished her course 5 days ago. Tonight she awoke up from sleep with severe throbbing pain in her right foot. No recent trauma. No fever or chills. She feels that the redness around one of the rods is new. She was seen earlier this week by her surgeon who felt that her pain was from nerve pain.). Similar symptoms previously: None. Recent medical care: The patient was seen recently at another facility in a clinic. REVIEW OF SYSTEMS No fever, cough, difficulty breathing, abdominal pain or nausea. No vomiting, chills or skin rash. PAST HISTORY See nurses notes. SOCIAL HISTORY Smoker- current status unknown. No alcohol use or drug use. ADDITIONAL NOTES The nursing notes have been reviewed. PHYSICAL EXAM Appearance: Alert. Appears to be in pain. Eyes: Eyes normal inspection. Neck: Normal inspection. CVS: Normal heart rate and rhythm. Heart sounds normal. Respiratory: No respiratory distress. Breath sounds normal. Back: Normal inspection. Skin: Skin warm and dry. No rash. Extremities: Right leg. No erythema, tenderness or swelling. Right foot: mild erythema and severe tenderness located in the heel. Neurovascular intact distally. (Pain out of proportion to even light touch throughout the calcaneus. Mild erythema around the lateral fixator john that this looks to be from chronic skin irritation. Otherwise no erythema, edema or warmth.). No swelling or deformity. Neuro: Oriented X 3. No motor deficit. No sensory deficit. LABS, X-RAYS, AND EKG Lt Foot X-ray: Soft tissues normal. Joint spaces normal. (No acute fracture. No hardware loosening.). The X-rays were discussed with the radiologist. Laboratory Tests: ESR: (REENA: 03/17/2017 19:30) ( [facility] [place] 03/17/2017 21:29) Final results Test Result Flag Units (Reference) SED RATE WESTERGREN 12 mm/hr (0-20) CBC w Diff: (REENA: 03/17/2017 19:30) ( [facility] [place] 03/17/2017 19:44) Final results Test Result Flag Units (Reference) WHITE BLOOD COUNT 13.5 H K/uL (4.5-11.5) RED BLOOD COUNT 5.10 M/uL (4.00-5.20) HEMOGLOBIN 14.6 gm/dL (12.0-16.0) HEMATOCRIT 43.1 % (36.0-46.0) MEAN CELL VOLUME 85 fL (80-100) MEAN CORPUSCULAR HGB 29 pg (26-34) MEAN CORPUSCULAR HGB CONC 34 g/dL (31-37) RED CELL DISTRIBUTION WIDTH 12.9 % (11.6-14.8) PLATELET COUNT 347 K/uL (150-400) NEUTROPHIL % 65.4 % (50-75) LYMPH % 23.5 L % (25-40) MONO % 9.9 % (3-14) EOSINOPHIL % 0.9 % (0-4) BASOPHIL % 0.3 % (0-2) [id number]: (REENA: 03/17/2017 19:30) ( [facility] [place] 03/17/2017 21:17) Final results Test Result Flag Units (Reference) C-REACTIVE PROTEIN 2.8 H mg/dL (0.0-0.9) Lactate, Serum: (REENA: 03/17/2017 19:40) ( [facility] 03/17/2017 20:15) Final results Test Result Flag Units (Reference) LACTIC ACID 1.2 mmol/L (0.4-2.0) CMP: (REENA: 03/17/2017 19:30) ( [facility] 03/17/2017 19:51) Final results Test Result Flag Units (Reference) GLUCOSE 106 mg/dL (70-110) BUN 13 mg/dL (7-18) CREATININE 0.8 mg/dL (0.6-1.3) Estimated GFR >60 mL/min Estimated GFR- >60 mL/min Note: Persistent reduction over 3 months in eGFR<60 mL/min/1.73 m2 defines CKD. Patients with eGFR values>=60 mL/min/1.73 m2 may also have CKD if evidence ofpersistent proteinuria. Additional information may be foundat www.kidney.org. SODIUM 140 mmol/L (136-145) POTASSIUM 4.0 mmol/L (3.5-5.1) CHLORIDE 103 mmol/L (98-107) CARBON DIOXIDE 25 mmol/L (21-32) CALCIUM 9.4 mg/dL (8.5-10.1) TOTAL PROTEIN 8.1 g/dL (6.4-8.2) ALBUMIN 4.0 g/dL (3.3-5.0) BILIRUBIN, TOTAL 0.3 mg/dL (0.0-1.0) ALKALINE PHOSPHATASE 65 U/L (46-116) AST (SGOT) 11 L U/L (15-37) ALT (SGPT) 29 U/L (12-78) . PROGRESS AND PROCEDURES Course of Care: 20:56 03/17/17. Discussed with radiology as well as supervising physician. No evidence of hardware loosening on x-ray. Lactate normal white count slightly elevated. We'll add an ESR and CRP and talk to on-call orthopedics. 21:33 03/17/17. CRP slightly elevated. Will discuss with on-call orthopedic surgeon. 21:50 03/17/17. Spoke to on-call surgeon. Discharge decision based on the following: patient's condition is stable; patient's condition is improved; patient's exam is stable; minimally abnormal test results; stable condition on multiple repeat evaluations; improving condition on multiple repeat evaluations; social support is good; transportation is available; follow-up is arranged; clinical impression is consistent with outpatient treatment. CLINICAL IMPRESSION Acute pain in the right lower extremity (foot). INSTRUCTIONS Rest at home for three days. Do not work for three days until better. No dietary restrictions. Warnings: SEDATIVE MEDICATION: You were given sedative medication during your visit. Do not drive or operate dangerous machinery. GENERAL WARNINGS: Return or contact your physician immediately if your condition worsens or changes unexpectedly, if not improving as expected, or if other problems arise. Specifically return if pain, vomiting or fever. Prescription Medications: Augmentin 875 mg: take 1 tablet orally every 12 hours for 10 days. No refill. Substitution is permissible. Agency 5 mg / 325 mg tablets: take 1 to 2 orally every 6 hours as needed for pain. Dispense fifteen (15). No refill. Substitution is permissible. Elavil 25 mg: at bedtime. Dispense twenty (20). No refill. Substitution is permissible. (T 1 tab PO HS for 1 week, then increase to 2 tabs PO HS.) Follow-up: Follow up with your doctor as scheduled. Understanding of the discharge instructions verbalized by patient. Follow-up with: [facility], , [address] [place], [id number]; Luis Eduardo Madera M.D., [facility], , [address], , [place], [phone] Follow up even if well. Call for the next available appointment. (Electronically signed by Teddy Marin, 03/17/2017 23:04)
--- NOTE | 2017-03-17 22:16 | ED ORDER SUMMARY ---
..... Patient: FRANCES MOURA OrderSheet [facility] VisitID: [id number] [place] [place] [address] 41y, F Registration Date/Time: 03/17/2017 ORDER SHEET Weight: 83.9 kg (stated) Allergies: GENERAL ORDERS: CBC w Diff Urgent (19:03/17/2017 JCoates) (Ack 19:26 OSnell) (22:31 HSoule) CMP Urgent (19:03/17/2017 JCoates) (Ack 19:26 OSnell) (22:31 HSoule) Lactate, Serum Urgent (:03/17/2017 JCoates) (Ack 19:26 OSnell) (22:31 HSoule) Foot 3V Left Urgent (19:03/17/2017 JCoates) (Ack 19:28 OSnell) (20:37 [place]) Culture, Wound Surface (Ankle) (Right ankle john insertion ) Urgent (20:25 03/17/2017 SStone R.N. verbal order read back to JCoates) (Ack 20:32 OSnell) (22:31 HSoule) CRP Urgent (20:56 03/17/2017 JCoates) (Ack 21:21 OSnell) (22:31 HSoule) ESR Urgent (20:56 03/17/2017 JCoates) (Ack 21:22 OSnell) (22:31 HSoule) Consult - Ortho (On-call for [facility] (Dr. Pollack previous surgeon). Thanks.) (21:32 03/17/2017 JCoates) (Ack 21:37 OSnell) (22:31 HSoule) MEDICATION ORDERS: IV FLUIDS: Dilaudid IV 2 mg (NOW) (19:03/17/2017 JCoates) (19:33 SStone R.N.) Zofran IV 8 mg (NOW) (:03/17/2017 JCoates) (19:33 SStone R.N.) IV Saline Lock (:03/17/2017 JCoates) (19:32 SStone R.N.) Dilaudid IV 1 mg (NOW) (21:09 03/17/2017 JCoates) (21:13 SStone R.N.) Rocephin IV 2 gm/50mL (NOW) (21:50 03/17/2017 JCoates) (22:00 SStone R.N.) ORDER SHEET NOTES: [Electronically signed by Teddy Marin (23:04 03/17/2017)] [Electronically signed by Leonie Gutierrez (19:15 03/27/2017)] [Electronically locked/signed by Leonie Gutierrez (19:15 03/27/2017)]
[2017-03-21] MEDS ORDERED: VICODIN EQUIVAL1 TAB PO (16:12)
[2017-03-21] MEDS ORDERED: DOXYCYCLINE100 MG PO (16:13)
--- NOTE | 2017-03-27 19:15 | ED DISCHARGE INSTRUCTIONS ---
Patient: FRANCES MOURA General Instructions [facility] VisitID: [id number] [address] [place] [address] 41y, F Registration Date/Time: 03/17/2017 Acute pain in the right lower extremity (foot). INSTRUCTIONS Rest at home for three days. Do not work for three days until better. No dietary restrictions. Warnings: SEDATIVE MEDICATION: You were given sedative medication during your visit. Do not drive or operate dangerous machinery. GENERAL WARNINGS: Return or contact your physician immediately if your condition worsens or changes unexpectedly, if not improving as expected, or if other problems arise. Specifically return if pain, vomiting or fever. Prescription Medications: Augmentin 875 mg: take 1 tablet orally every 12 hours for 10 days. No refill. Substitution is permissible. Jack 5 mg / 325 mg tablets: take 1 to 2 orally every 6 hours as needed for pain. Dispense fifteen (15). No refill. Substitution is permissible. Elavil 25 mg: at bedtime. Dispense twenty (20). No refill. Substitution is permissible. (T 1 tab PO HS for 1 week, then increase to 2 tabs PO HS.) Follow-up: Follow up with your doctor as scheduled. Understanding of the discharge instructions verbalized by patient. [facility] , [address] [place] [phone]; Luis Eduardo Madera M.D., [facility], , [address] [place] [id number] Follow up even if well. Call for the next available appointment. ADDITIONAL INFORMATION Amoxicillin Trihydrate, Clavulanate Potassium Oral tablet What is this medicine? AMOXICILLIN; CLAVULANIC ACID (a mox i ALECIA in; BRENT mares id) is a penicillin antibiotic. It is used to treat certain kinds of bacterial infections. It will not work for colds, flu, or other viral infections. How should I use this medicine? Take this medicine by mouth with a full glass of water. Follow the directions on the prescription label. Take at the start of a meal. Do not crush or chew. If the tablet has a score line, you may cut it in half at the score line for easier swallowing. Take your medicine at regular intervals. Do not take your medicine more often than directed. Take all of your medicine as directed even if you think you are better. Do not skip doses or stop your medicine early. Talk to your [facility] regarding the use of this medicine in children. Special care may be needed. What side effects may I notice from receiving this medicine? Side effects that you should report to your doctor or health client care coordinator as soon as possible: allergic reactions like skin rash, itching or hives, swelling of the face, lips, or tongue breathing problems dark urine fever or chills, sore throat redness, blistering, peeling or loosening of the skin, including inside the mouth seizures trouble passing urine or change in the amount of urine unusual bleeding, bruising unusually weak or tired white patches or sores in the mouth or throat Side effects that usually do not require medical attention (report to your doctor or health client care coordinator if they continue or are bothersome): diarrhea dizziness headache nausea, vomiting stomach upset vaginal or anal irritation What may interact with this medicine? allopurinol anticoagulants control pills methotrexate probenecid What if I miss a dose? If you miss a dose, take it as soon as you can. If it is almost time for your next dose, take only that dose. Do not take double or extra doses. Where should I keep my medicine? Keep out of the reach of children. Store at room temperature below 25 degrees C (77 degrees F). Keep container tightly closed. Throw away any unused medicine after the expiration date. What should I tell my health care provider before I take this medicine? They need to know if you have any of these conditions: bowel disease, like colitis kidney disease liver disease mononucleosis an unusual or allergic reaction to amoxicillin, penicillin, cephalosporin, other antibiotics, clavulanic acid, other medicines, foods, dyes, or preservatives or trying to get breast-feeding What should I watch for while using this medicine? Tell your doctor or health client care coordinator if your symptoms do not improve. Do not treat diarrhea with over the counter products. Contact your doctor if you have diarrhea that lasts more than 2 days or if it is severe and watery. If you have diabetes, you may get a false-positive result for sugar in your urine. Check with your doctor or health client care coordinator. control pills may not work properly while you are taking this medicine. Talk to your doctor about using an extra method of control. Hydrocodone Bitartrate, Acetaminophen Oral tablet What is this medicine? ACETAMINOPHEN; HYDROCODONE (a set a KERVIN temi fen; maria esther droe KOE done) is a pain reliever. It is used to treat mild to moderate pain. How should I use this medicine? Take this medicine by mouth. Swallow it with a full glass of water. Follow the directions on the prescription label. If the medicine upsets your stomach, take the medicine with food or milk. Do not take more than you are told to take. Talk to your [facility] regarding the use of this medicine in children. This medicine is not approved for use in children. What side effects may I notice from receiving this medicine? Side effects that you should report to your doctor or health client care coordinator as soon as possible: allergic reactions like skin rash, itching or hives, swelling of the face, lips, or tongue breathing problems confusion feeling faint or lightheaded, falls stomach pain yellowing of the eyes or skin Side effects that usually do not require medical attention (report to your doctor or health client care coordinator if they continue or are bothersome): nausea, vomiting stomach upset What may interact with this medicine? alcohol antihistamines isoniazid medicines for depression, anxiety, or psychotic disturbances medicines for sleep muscle relaxants naltrexone narcotic medicines (opiates) for pain phenobarbital ritonavir tramadol What if I miss a dose? If you miss a dose, take it as soon as you can. If it is almost time for your next dose, take only that dose. Do not take double or extra doses. Where should I keep my medicine? Keep out of the reach of children. This medicine can be abused. Keep your medicine in a safe place to protect it from theft. Do not share this medicine with anyone. Selling or giving away this medicine is dangerous and against the law. Store at room temperature between 15 and 30 degrees C (59 and 86 degrees F). Protect from light. Keep container tightly closed. Throw away any unused medicine after the expiration date. Discard unused medicine and used packaging carefully. Pets and children can be harmed if they find used or lost packages. What should I tell my health care provider before I take this medicine? They need to know if you have any of these conditions: brain tumor Crohn's disease, inflammatory bowel disease, or ulcerative colitis drink more than 3 alcohol-containing drinks per day drug abuse or addiction head injury heart or circulation problems kidney disease or problems going to the bathroom liver disease lung disease, asthma, or breathing problems an unusual or allergic reaction to acetaminophen, hydrocodone, other opioid analgesics, other medicines, foods, dyes, or preservatives or trying to get breast-feeding What should I watch for while using this medicine? Tell your doctor or health client care coordinator if your pain does not go away, if it gets worse, or if you have new or a different type of pain. You may develop tolerance to the medicine. Tolerance means that you will need a higher dose of the medicine for pain relief. Tolerance is normal and is expected if you take the medicine for a long time. Do not suddenly stop taking your medicine because you may develop a severe reaction. Your body becomes used to the medicine. This does NOT mean you are addicted. Addiction is a behavior related to getting and using a drug for a non-medical reason. If you have pain, you have a medical reason to take pain medicine. Your doctor will tell you how much medicine to take. If your doctor wants you to stop the medicine, the dose will be slowly lowered over time to avoid any side effects. You may get drowsy or dizzy when you first start taking the medicine or change doses. Do not drive, use machinery, or do anything that may be dangerous until you know how the medicine affects you. Stand or sit up slowly. There are different types of narcotic medicines (opiates) for pain. If you take more than one type at the same time, you may have more side effects. Give your health care provider a list of all medicines you use. Your doctor will tell you how much medicine to take. Do not take more medicine than directed. Call emergency for help if you have problems breathing. The medicine will cause constipation. Try to have a bowel movement at least every 2 to 3 days. If you do not have a bowel movement for 3 days, call your doctor or health client care coordinator. Too much acetaminophen can be very dangerous. Do not take Tylenol (acetaminophen) or medicines that contain acetaminophen with this medicine. Many non-prescription medicines contain acetaminophen. Always read the labels carefully. You have been given the following additional information: Amoxicillin Trihydrate, Clavulanate Potassium Oral tablet Hydrocodone Bitartrate, Acetaminophen Oral tablet Rest at home for three days. Do not work for three days until better. (Electronically signed by Teddy Marin, 03/17/2017 23:04)
--- NOTE | 2017-03-27 19:15 | ED MED RECONCILIATION SUMMARY ---
Patient: FRANCES MOURA Medication Reconciliation Report [facility] VisitID: [id number] [place] [address] 41y, F Registration Date/Time: 03/17/2017 Weight: 83.9 kg Height/Length: 62 in. BMI: 33.9 ALLERGIES: The patient's Home Medications are listed below: Not obtained. The source(s) of the original Home Medication information: Not obtained. The following Medications were given to the patient in the Emergency Department: Dilaudid [IVP] IVP 1 mg, administered: 03/17/2017 7:28:00 PM Zofran [IVP] IVP 4 mg, administered: 03/17/2017 7:28:00 PM Dilaudid [IVP] IVP 1 mg, administered: 03/17/2017 8:25:00 PM Dilaudid [IVP] IVP 1 mg, administered: 03/17/2017 9:13:00 PM Rocephin [IVPB] IVPB bolus 0, then 2 gm 100 mL/hr, administered: 03/17/2017 10:00:00 PM The following Medications were prescribed to the patient: Augmentin 875 mg: take 1 tablet orally every 12 hours for 10 days. No refill. Substitution is permissible. -- Teddy Marin [place] 5 mg / 325 mg tablets: take 1 to 2 orally every 6 hours as needed for pain. Dispense fifteen (15). No refill. Substitution is permissible. -- Teddy Marin Elavil 25 mg: at bedtime. Dispense twenty (20). No refill. Substitution is permissible.(T 1 tab PO HS for 1 week, then increase to 2 tabs PO HS.) -- Teddy Marin
--- NOTE | 2017-03-27 19:15 | ED MED RECONCILIATION SUMMARY ---
Patient: FRANCES MOURA Medication Reconciliation Report [facility] VisitID: [id number] [place] [address] 41y, F Registration Date/Time: 03/17/2017 Weight: 83.9 kg Height/Length: 62 in. BMI: 33.9 ALLERGIES: The patient's Home Medications are listed below: Not obtained. The source(s) of the original Home Medication information: Not obtained. The following Medications were given to the patient in the Emergency Department: Dilaudid [IVP] IVP 1 mg, administered: 03/17/2017 7:28:00 PM Zofran [IVP] IVP 4 mg, administered: 03/17/2017 7:28:00 PM Dilaudid [IVP] IVP 1 mg, administered: 03/17/2017 8:25:00 PM Dilaudid [IVP] IVP 1 mg, administered: 03/17/2017 9:13:00 PM Rocephin [IVPB] IVPB bolus 0, then 2 gm 100 mL/hr, administered: 03/17/2017 10:00:00 PM The following Medications were prescribed to the patient: Augmentin 875 mg: take 1 tablet orally every 12 hours for 10 days. No refill. Substitution is permissible. -- Teddy Marin [place] 5 mg / 325 mg tablets: take 1 to 2 orally every 6 hours as needed for pain. Dispense fifteen (15). No refill. Substitution is permissible. -- Teddy Marin Elavil 25 mg: at bedtime. Dispense twenty (20). No refill. Substitution is permissible.(T 1 tab PO HS for 1 week, then increase to 2 tabs PO HS.) -- Teddy Marin
--- NOTE | 2017-03-27 19:15 | ED MAR SUMMARY ---
..... Medication Administration Record [facility] [address] [place] [address] Patient: FRANCES MOURA Visit ID: [id number] 41y, F Weight: 83.9 kg Height/Length: 62 in BMI: 33.9 ALLERGIES: Given 19:03/17/2017 Ashley Lowe R.N. Medication Administered: DILAUDID [IVP] (HYDROMORPHONE HCL PF), Dose: 1 mg IVP over 2 minute(s), Site: #1. Medication Ordered: Dilaudid IV 2 mg (NOW). Given :03/17/2017 Ashley Lowe R.N. Medication Administered: ZOFRAN [IVP] (ONDANSETRON HCL), Dose: 4 mg IVP over 2 minute(s), Site: #1. Medication Ordered: Zofran IV 8 mg (NOW). Given 20:03/17/2017 Ashley Lowe R.N. Medication Administered: DILAUDID [IVP] (HYDROMORPHONE HCL PF), Dose: 1 mg IVP over 2 minute(s), Site: #1 right AC. Medication Ordered: Dilaudid IV 2 mg (NOW). Given 21:13 03/17/2017 Ashley Lowe R.N. Medication Administered: DILAUDID [IVP] (HYDROMORPHONE HCL PF), Dose: 1 mg IVP over 2 minute(s), Site: #1 right AC. Medication Ordered: Dilaudid IV 1 mg (NOW). Start 22:00 03/17/2017 Ashley Lowe R.N., Stop 22:31 03/17/2017 Miguelina Serrano, Medication Administered: ROCEPHIN [IVPB] (CEFTRIAXONE SODIUM), Dose: 2 gm IVPB over 30 minute(s), Rate: 100 mL/hr, Dispensed: 50 mL bag, Site: #1 right AC. Medication Ordered: Rocephin IV 2 gm/50mL (NOW).
--- NOTE | 2017-03-27 19:15 | ED MAR SUMMARY ---
..... Medication Administration Record [facility] [address] [place] [address] Patient: FRANCES MOURA Visit ID: [id number] 41y, F Weight: 83.9 kg Height/Length: 62 in BMI: 33.9 ALLERGIES: Given 19:03/17/2017 Ashley Lowe R.N. Medication Administered: DILAUDID [IVP] (HYDROMORPHONE HCL PF), Dose: 1 mg IVP over 2 minute(s), Site: #1. Medication Ordered: Dilaudid IV 2 mg (NOW). Given :03/17/2017 Ashley Lowe R.N. Medication Administered: ZOFRAN [IVP] (ONDANSETRON HCL), Dose: 4 mg IVP over 2 minute(s), Site: #1. Medication Ordered: Zofran IV 8 mg (NOW). Given 20:03/17/2017 Ashley Lowe R.N. Medication Administered: DILAUDID [IVP] (HYDROMORPHONE HCL PF), Dose: 1 mg IVP over 2 minute(s), Site: #1 right AC. Medication Ordered: Dilaudid IV 2 mg (NOW). Given 21:13 03/17/2017 Ashley Lowe R.N. Medication Administered: DILAUDID [IVP] (HYDROMORPHONE HCL PF), Dose: 1 mg IVP over 2 minute(s), Site: #1 right AC. Medication Ordered: Dilaudid IV 1 mg (NOW). Start 22:00 03/17/2017 Ashley Lowe R.N., Stop 22:31 03/17/2017 Miguelina Serrano, Medication Administered: ROCEPHIN [IVPB] (CEFTRIAXONE SODIUM), Dose: 2 gm IVPB over 30 minute(s), Rate: 100 mL/hr, Dispensed: 50 mL bag, Site: #1 right AC. Medication Ordered: Rocephin IV 2 gm/50mL (NOW).
--- NOTE | 2017-03-27 19:15 | ED DISCHARGE INSTRUCTIONS ---
Patient: FRANCES MOURA General Instructions [facility] VisitID: [id number] [address] [place] [address] 41y, F Registration Date/Time: 03/17/2017 Acute pain in the right lower extremity (foot). INSTRUCTIONS Rest at home for three days. Do not work for three days until better. No dietary restrictions. Warnings: SEDATIVE MEDICATION: You were given sedative medication during your visit. Do not drive or operate dangerous machinery. GENERAL WARNINGS: Return or contact your physician immediately if your condition worsens or changes unexpectedly, if not improving as expected, or if other problems arise. Specifically return if pain, vomiting or fever. Prescription Medications: Augmentin 875 mg: take 1 tablet orally every 12 hours for 10 days. No refill. Substitution is permissible. Perry 5 mg / 325 mg tablets: take 1 to 2 orally every 6 hours as needed for pain. Dispense fifteen (15). No refill. Substitution is permissible. Elavil 25 mg: at bedtime. Dispense twenty (20). No refill. Substitution is permissible. (T 1 tab PO HS for 1 week, then increase to 2 tabs PO HS.) Follow-up: Follow up with your doctor as scheduled. Understanding of the discharge instructions verbalized by patient. [facility]: [facility], , [address] [place] [id number]; Luis Eduardo Madera M.D., [place], , [address] [place] [address] Follow up even if well. Call for the next available appointment. ADDITIONAL INFORMATION Amoxicillin Trihydrate, Clavulanate Potassium Oral tablet What is this medicine? AMOXICILLIN; CLAVULANIC ACID (a mox i ALECIA in; BRENT mares id) is a penicillin antibiotic. It is used to treat certain kinds of bacterial infections. It will not work for colds, flu, or other viral infections. How should I use this medicine? Take this medicine by mouth with a full glass of water. Follow the directions on the prescription label. Take at the start of a meal. Do not crush or chew. If the tablet has a score line, you may cut it in half at the score line for easier swallowing. Take your medicine at regular intervals. Do not take your medicine more often than directed. Take all of your medicine as directed even if you think you are better. Do not skip doses or stop your medicine early. Talk to your sprinkler worker regarding the use of this medicine in children. Special care may be needed. What side effects may I notice from receiving this medicine? Side effects that you should report to your doctor or health progressive care unit registered nurse as soon as possible: allergic reactions like skin rash, itching or hives, swelling of the face, lips, or tongue breathing problems dark urine fever or chills, sore throat redness, blistering, peeling or loosening of the skin, including inside the mouth seizures trouble passing urine or change in the amount of urine unusual bleeding, bruising unusually weak or tired white patches or sores in the mouth or throat Side effects that usually do not require medical attention (report to your doctor or health progressive care unit registered nurse if they continue or are bothersome): diarrhea dizziness headache nausea, vomiting stomach upset vaginal or anal irritation What may interact with this medicine? allopurinol anticoagulants control pills methotrexate probenecid What if I miss a dose? If you miss a dose, take it as soon as you can. If it is almost time for your next dose, take only that dose. Do not take double or extra doses. Where should I keep my medicine? Keep out of the reach of children. Store at room temperature below 25 degrees C (77 degrees F). Keep container tightly closed. Throw away any unused medicine after the expiration date. What should I tell my health care provider before I take this medicine? They need to know if you have any of these conditions: bowel disease, like colitis kidney disease liver disease mononucleosis an unusual or allergic reaction to amoxicillin, penicillin, cephalosporin, other antibiotics, clavulanic acid, other medicines, foods, dyes, or preservatives or trying to get breast-feeding What should I watch for while using this medicine? Tell your doctor or health progressive care unit registered nurse if your symptoms do not improve. Do not treat diarrhea with over the counter products. Contact your doctor if you have diarrhea that lasts more than 2 days or if it is severe and watery. If you have diabetes, you may get a false-positive result for sugar in your urine. Check with your doctor or health progressive care unit registered nurse. control pills may not work properly while you are taking this medicine. Talk to your doctor about using an extra method of control. Hydrocodone Bitartrate, Acetaminophen Oral tablet What is this medicine? ACETAMINOPHEN; HYDROCODONE (a set a KERVIN temi fen; maira esther droe KOE done) is a pain reliever. It is used to treat mild to moderate pain. How should I use this medicine? Take this medicine by mouth. Swallow it with a full glass of water. Follow the directions on the prescription label. If the medicine upsets your stomach, take the medicine with food or milk. Do not take more than you are told to take. Talk to your sprinkler worker regarding the use of this medicine in children. This medicine is not approved for use in children. What side effects may I notice from receiving this medicine? Side effects that you should report to your doctor or health progressive care unit registered nurse as soon as possible: allergic reactions like skin rash, itching or hives, swelling of the face, lips, or tongue breathing problems confusion feeling faint or lightheaded, falls stomach pain yellowing of the eyes or skin Side effects that usually do not require medical attention (report to your doctor or health progressive care unit registered nurse if they continue or are bothersome): nausea, vomiting stomach upset What may interact with this medicine? alcohol antihistamines isoniazid medicines for depression, anxiety, or psychotic disturbances medicines for sleep muscle relaxants naltrexone narcotic medicines (opiates) for pain phenobarbital ritonavir tramadol What if I miss a dose? If you miss a dose, take it as soon as you can. If it is almost time for your next dose, take only that dose. Do not take double or extra doses. Where should I keep my medicine? Keep out of the reach of children. This medicine can be abused. Keep your medicine in a safe place to protect it from theft. Do not share this medicine with anyone. Selling or giving away this medicine is dangerous and against the law. Store at room temperature between 15 and 30 degrees C (59 and 86 degrees F). Protect from light. Keep container tightly closed. Throw away any unused medicine after the expiration date. Discard unused medicine and used packaging carefully. Pets and children can be harmed if they find used or lost packages. What should I tell my health care provider before I take this medicine? They need to know if you have any of these conditions: brain tumor Crohn's disease, inflammatory bowel disease, or ulcerative colitis drink more than 3 alcohol-containing drinks per day drug abuse or addiction head injury heart or circulation problems kidney disease or problems going to the bathroom liver disease lung disease, asthma, or breathing problems an unusual or allergic reaction to acetaminophen, hydrocodone, other opioid analgesics, other medicines, foods, dyes, or preservatives or trying to get breast-feeding What should I watch for while using this medicine? Tell your doctor or health progressive care unit registered nurse if your pain does not go away, if it gets worse, or if you have new or a different type of pain. You may develop tolerance to the medicine. Tolerance means that you will need a higher dose of the medicine for pain relief. Tolerance is normal and is expected if you take the medicine for a long time. Do not suddenly stop taking your medicine because you may develop a severe reaction. Your body becomes used to the medicine. This does NOT mean you are addicted. Addiction is a behavior related to getting and using a drug for a non-medical reason. If you have pain, you have a medical reason to take pain medicine. Your doctor will tell you how much medicine to take. If your doctor wants you to stop the medicine, the dose will be slowly lowered over time to avoid any side effects. You may get drowsy or dizzy when you first start taking the medicine or change doses. Do not drive, use machinery, or do anything that may be dangerous until you know how the medicine affects you. Stand or sit up slowly. There are different types of narcotic medicines (opiates) for pain. If you take more than one type at the same time, you may have more side effects. Give your health care provider a list of all medicines you use. Your doctor will tell you how much medicine to take. Do not take more medicine than directed. Call emergency for help if you have problems breathing. The medicine will cause constipation. Try to have a bowel movement at least every 2 to 3 days. If you do not have a bowel movement for 3 days, call your doctor or health progressive care unit registered nurse. Too much acetaminophen can be very dangerous. Do not take Tylenol (acetaminophen) or medicines that contain acetaminophen with this medicine. Many non-prescription medicines contain acetaminophen. Always read the labels carefully. You have been given the following additional information: Amoxicillin Trihydrate, Clavulanate Potassium Oral tablet Hydrocodone Bitartrate, Acetaminophen Oral tablet Rest at home for three days. Do not work for three days until better. (Electronically signed by Teddy Marin, 03/17/2017 23:04)
== END 2017-03-17 22:50 | disposition home or self-care (01) ==
LOC: ED SRH 18:58
DX: M79.671 Pain in right foot (principal); I10 Essential (primary) hypertension; Z98.890 Other specified postprocedural states

== ENCOUNTER 2017-03-22 06:19 | Day surgery (SDC) | payer BC ==
[~2017-03-22] VITALS: Ht 157.5 cm; Wt 81.6 kg
[~2017-03-22 06:19] MED LIST changes: +DOXYCYCLINE100 MG PO; +VICODIN EQUIVAL1 TAB PO
--- NOTE | 2017-03-22 07:07 | NUR ---
PREOP INSTRUCTIONS GIVEN TO PATIENT. QUESITONS ANSWERED. PATIENT VERBALIZES UNDERSTANDING. CONSENT CONFIRMED. NO PREOP MEDICATIONS GIVEN. EXTREMITY MARKED AND ELEVATED. IN ROOM. KB
--- NOTE | 2017-03-22 07:52 | Preoperative Progress Note ---
Preop Note Details Current Status: No Changes (Last Abx yest AM) Physical Exam: No Changes Necessity: Still desired/necessary Other: CV Reviewed, Respiratory Reviewed, Review MONISHA notes & Vitals, Remove frame prior to prep and drape in OR. Pt wants frame parts.
--- NOTE | 2017-03-22 08:22 | NUR ---
PT ON AUGMENTIN AT HOME NO ANTIBIOTIC NEEDED PRIOR TO START OF CASE PER DR DOWD
--- NOTE | 2017-03-22 08:43 | Postoperative Progress Note ---
Postop Progress Note Preoperate Diagnosis: R calc pin site infxn s/p redux trimalleolar ankle fx spanning ex-fix Postoperative Diagnosis: same Surgeon: Luis Eduardo Madera MD Anesthesia: General ETT Findings: All ex-fix pins tight except calc transfixion pin which was loose but not wobbly. No puss. All pin sites curetted and irrigated. Procedure: Removal of R ankle spanning ex-fix, irrigation and debridement of of pin sites. Complications? No Condition: Stable EBL: Minimal Blood Administered: None Specimen(s) removed? No Grafts or Implants? No . (See nursing notes for details of grafts/implants)
--- NOTE | 2017-03-22 08:52 | NUR ---
rec'd from OR; SPONT RESP. SUPINE AND ASKING QUESTIONS. REPORTS PAIN TO BE 5/10; PAIN MEDS GIVEN BY ANESTHESIA.
[2017-03-22] MEDS ORDERED: ASPIRIN325 MG PO (08:59)
--- NOTE | 2017-03-22 09:02 | Provider's Discharge Care Plan ---
Problem, Goal, Plan Problem List 1. Ankle fracture Goals: Improve function, Improved health/wellness, Increase independence Instructions: Follow up as directed, Take meds as directed, Stop smoking
--- NOTE | 2017-03-22 09:02 | Provider's Discharge Care Plan ---
Problem, Goal, Plan Problem List 1. Ankle fracture Goals: Improve function, Improved health/wellness, Increase independence Instructions: Follow up as directed, Take meds as directed, Stop smoking
--- NOTE | 2017-03-22 09:15 | NUR ---
PAIN LEVEL 2-3/10; CMS=GOOD. RELAXING; STATED, "I WANT TO TAKE A NAP." TWO PILLOW UNDER RLE; BOOT APPLIED IN OR.
--- NOTE | 2017-03-22 09:20 | NUR ---
SURGEON HERE TO SPEAK TO PT RE FINDINGS AND POST OP CARE
--- NOTE | 2017-03-22 09:49 | NUR ---
REC'D FROM PACU; AWAKE AND ALERT; WANTS TO TAKE A NAP. CMS=GOOD. RLE ELEVATED AND ICED PER ORDERS. SURGEON LOOSEN BOOT IN PACU.
--- NOTE | 2017-03-22 09:53 | NUR ---
PATIENT RETURNED TO THE FLOOR AWAKE AND TALKING. VSS. RA SATS 99%. O2 REMOVED. PO OFFERED. PATIENT DENIES PAIN AT THIS TIME. EXTREMITY ELEVATED. ICE UNDER KNEE. KB
--- NOTE | 2017-03-22 10:21 | OPERATIVE REPORT ---
DATE OF SURGERY: 03/22/2017 SURGEON: Luis Eduardo Madera MD PREOPERATIVE DIAGNOSIS: 1. Right calcaneal pin site infection, status post reduction and ankle spanning external fixation of trimalleolar right ankle fracture dislocation with plafond involvement POSTOPERATIVE DIAGNOSIS: 1. Right calcaneal pin site infection, status post reduction and ankle spanning external fixation of trimalleolar right ankle fracture dislocation with plafond involvement PROCEDURES PERFORMED: 1. Removal of right ankle spanning external fixator 2. Irrigation and debridement of all pin sites ANESTHESIA: General endotracheal. PATHOLOGY SPECIMEN: There were no specimens. ESTIMATED BLOOD LOSS: Minimal. FLUIDS: Blood replacement: IV crystalloid fluids. No blood products. CONDITION: Leaving the operating room stable and satisfactory. INDICATIONS: A 41-year-old woman sustained a severe ankle fracture dislocation on 01/31/2017. She was seen and evaluated by Dr. Michael Crespo here at [facility] and underwent closed reduction and ankle spanning external fixation, with open reduction and internal fixation of the medial malleolus with single screw and K- wire technique. Postoperative CT scan showed acceptable reduction of the fracture. Dr. Crespo has been following her with serial x-rays to determine if she will have adequate healing in the fixator or need open reduction internal fixation of the lateral malleolus and plafond. His plan was 8 weeks in the external fixator; It has now been 6 weeks, but she has had several bouts of calcaneal and other pin tract infections, most recently responding to Augmentin. She also has a history of fibromyalgia and may have some complex regional pain syndrome associated with it, especially the medial aspect of the calcaneal pin site, so she was started on Elavil. Due to the recurrent pin site infections and pain, the decision was made to remove the fixator now, although it has been 7 weeks, and clean out the pin sites and, if she does need for further surgery, do that in a staged fashion. SURGICAL FINDINGS: The tibial, first metatarsal pins were well fixed and required a mara to remove. The calcaneal transfixion pin was not wobbly. There was no purulent drainage, but was able to be removed with fingers alone. All pin sites were sequentially curetted, irrigated, and there was no purulent tissue or concerning tissue that was sent for culture. SURGICAL TECHNIQUE: The patient was identified in the preoperative holding area. She had stopped her Augmentin yesterday, after being seen in clinic; therefore, her last dose was greater than 24 hours ago. She denied any interval change in her medical condition. She did want her fixator components. She was seen and interviewed by Anesthesia and nursing team members, and brought back to the operating room where general endotracheal anesthesia was administered but the perioperative antibiotics were withheld. The external portions of the fixator were removed and cleaned, to be given to the patient. The lateral aspect of the calcaneal transfixion pin was cut close to the skin with sterile bolt cutters, and then the surgical team paused to confirm the correct patient, operative site, procedure, appropriate availability of instruments, and that we had not given perioperative antibiotics in case there was need to send cultures, and that the pneumatic compression device on the nonoperative leg was working over her SAUL hose. Once this was all confirmed, she had her right lower extremity prescrubbed with Hibiclens scrub and then prepped with ChloraPrep and draped free in a sterile fashion for surgery. The tibial pins were removed first with a Morris's mara, followed by the first metatarsal pin. Each of these had good purchase and was not loose. The calcaneal pin was not wobbly, but could be unthreaded with gloved fingers alone. It was removed from the medial side so as to minimize the risk of transporting bacteria from the medial pin site infection through the calcaneus. Next, sterile curettes were used to sequentially clean out the skin and bone, starting at the proximal tibial pin site and copiously irrigating and then soaking the curette in Betadine and repeating the procedure for the distal tibial pin site, copiously irrigating, repeating the procedure with the sterilized curette for the first metatarsal pin site. Then, for the lateral calcaneal pin site, again we copiously irrigated each site as we proceeded. The hyperkeratotic skin at the medial calcaneal pin site was removed with a sterile curette, the soft tissue curetted and a fresh larger curette was used to curet out the calcaneal pin site in 360 degrees for the full-thickness of the calcaneus from the medial side. We then copiously irrigated with bulb syringe and normal saline at that site as we had done at all other pin sites, until the fluid was clear and greater than a liter had been utilized. The leg was then cleansed, dressed with Xeroform over each pin site, 4 x 4s, Kerlix, and an Cyrus wrap. The leg was then positioned in the fracture boot with the heel well seated, undraped, reversed from anesthesia. The patient was brought to the recovery room in stable and satisfactory condition, having tolerated the procedure well without apparent complication. All sponge, needle and instrument counts were reported correct prior to leaving the operating room. PLAN: She will be nonweightbearing in the CAM walker boot with the heel fully seated to prevent equinus contracture. She will change her dressing daily and as needed, keep the wounds clean and dry until she returns to clinic in 3-5 days' time for x-rays and wound check. She will resume her Augmentin for the remaining 7 days of the prescription that she has. Pain control will be with [place] 1-2 tablets every 4-6 hours as needed for pain. I also recommend aspirin enteric-coated 325 mg tablets twice daily for up to 6 weeks for thromboembolic prophylaxis, given her general endotracheal anesthesia today. She will continue with calcium and vitamin D supplements. She will see Dr. Crespo when he returns to clinic in mid March, for definitive advancement of weightbearing and determination if additional surgery or physical therapy is needed.
--- NOTE | 2017-03-22 10:23 | NUR ---
PATIENT APPEARS TO BE RESTING COMFORTABLY. VSS. RA SATS 94%. KB
[2017-03-22 11:17] VITALS: BP 111/77
--- NOTE | 2017-03-22 12:23 | NUR ---
PATIENT GETTING ADEQUATE PAIN RELIEF. UP TO BR INDEPENDENTLY WITH CRUTCHES. VOIDED. DRESSSING DRY. BOOT ON. CMS INTACT. DISCHARGE INSTRUCTIONS GIVEN TO PATIENT. QUESTIONS ANSWERED. PATIENT VERBALIZES UNDERSTANDING. WILL DISCHARGE HOME WITH HER . KB
== END 2017-03-22 12:46 | disposition home or self-care (01) ==
LOC: OR SRH 06:19 → SCU SRH 09:14 → OR SRH 12:46
PROVIDERS: Orthopaedic Surgery
PROC: 0YP93YZ Removal of Other Device from Right Lower Extremity, Percutaneous Approach (ICD-10-PCS; principal; 2017-03-22 07:30)
DX: T84.7XXA Infection and inflammatory reaction due to other internal orthopedic prosthetic devices, implants and grafts, initial encounter (principal); S82.851D Displaced trimalleolar fracture of right lower leg, subsequent encounter for closed fracture with routine healing; X58.XXXD Exposure to other specified factors, subsequent encounter
CPT/HCPCS: 29229; 29240; 50002; 60001; 70002; 80102; 80118; 80212; 87115